=== PATIENT | male | born 1960 | race Caucasian/White ===

== ENCOUNTER 2017-05-04 03:57 | Inpatient (IN) | payer MEDICARE, MEDICAID ==
[2017-05-04] VITALS (16 sets, daily range): BP systolic 93–129; BP diastolic 5–80
[~2017-05-04] VITALS: Ht 152.4 cm; Wt 46.5 kg
[2017-05-04] MEDS ORDERED: NS IV 1000 ML 1,000 ML ONE (05:17)
[2017-05-04] MEDS ORDERED: NS IV 1000 ML 1,000 ML IV SCH ×2 (05:45)
[2017-05-04] MEDS ORDERED: DOPamine DRIP 250 ML IV SCH (05:45)
[2017-05-04 05:50] LABS: BILIRUBIN,URINE NEGATIVE (NEGATIVE); KETONES,URINE NEGATIVE (NEGATIVE); LEUKOCYTE ESTERASE ,URINE 3+ (NEGATIVE); NITRITE,URINE NEGATIVE (NEGATIVE); PH,URINE 8 (5-9); PROTEIN,URINE 3+ (NEGATIVE); UROBILINOGEN,URINE NORMAL (NORMAL)
[2017-05-04 05:59] LABS: TRIPLE PHOSPHATE CRYSTAL,UR FEW /LPF
[2017-05-04 06:09] LABS: BASOPHILS % (AUTO) 0 % (0-10); EOSINOPHILS # (AUTO) 0.1 10^3/uL (0.0-0.3); EOSINOPHILS % (AUTO) 0 % (0-10); LYMPHOCYTES # (AUTO) 0.5 X 10^3 (1.0-4.0); LYMPHOCYTES % (AUTO) 4 % (12-44); MEAN CORPUSCULAR HEMOGLOBIN 29 PG (25-34); MEAN CORPUSCULAR HGB CONC 33 G/DL (32-36); MEAN CORPUSCULAR VOLUME 89 FL (80-99); MONOCYTES # (AUTO) 0.9 X 10^3 (0.0-1.0); MONOCYTES % (AUTO) 7 % (0-12); NEUTROPHILS # (AUTO) 10.7 X 10^3 (1.8-7.8); NEUTROPHILS % (AUTO) 88 % (42-75); PLATELET COUNT 206 10^3/uL (130-400); RED BLOOD COUNT 3.87 10^6/uL (4.35-5.85); RED CELL DISTRIBUTION WIDTH 14.1 % (10.0-14.5); WHITE BLOOD COUNT 12.2 10^3/uL (4.3-11.0)
[2017-05-04 06:25] LABS: ANION GAP 8 MMOL/L (5-14); BLOOD UREA NITROGEN 39 MG/DL (7-18); BUN/CREATININE RATIO 39; CALCIUM 7.2 MG/DL (8.5-10.1); CARBON DIOXIDE 15 MMOL/L (21-32); CHLORIDE 119 MMOL/L (98-107); CREATININE SERUM 1.01 MG/DL (0.60-1.30); GFR ESTIMATED > 60; GLUCOSE 169 MG/DL (70-105); MAGNESIUM 1.6 MG/DL (1.8-2.4); PHOSPHORUS 2.3 MG/DL (2.3-4.7); POTASSIUM 3.8 MMOL/L (3.6-5.0); SODIUM 142 MMOL/L (135-145)
[2017-05-04 06:29] LABS: BAND NEUTROPHILS 4 %; BASOPHILS % (MANUAL) 0 %; EOSINOPHILS % (MANUAL) 0 %; LYMPHOCYTES % (MANUAL) 6 %; NEUTROPHILS % (MANUAL) 80 %
[2017-05-04 06:30] LABS: CRENATED RBC SLIGHT; POIKILOCYTOSIS MODERATE
[2017-05-04] MEDS ORDERED: NOREPINEPHRINE 4 MG/4 ML (LEVOPHED) AMP IV ONE (06:41)
[2017-05-04] MEDS ORDERED: LISI10TA2 PO (06:41)
[2017-05-04] MEDS ORDERED: AMLO5TAB2 PO (06:42)
[2017-05-04] MEDS ORDERED: D5W 250 ML (IVPB) 250 ML IV ONE (06:42)
[2017-05-04] MEDS ORDERED: SODIUM BICARB 8.4% 50 MEQ/50 ML (ABBOTT) SYR IV ONE (06:45)
[2017-05-04] MEDS ORDERED: LACTATED RINGERS 1,000 ML IV ONE (06:45)
[2017-05-04] MEDS ORDERED: PHARMACY TO DOSE IV SCH (06:45)
--- NOTE | 2017-05-04 06:54 | Pulmonary Consultation ---
History of Present Illness History of Present Illness Date of Consultation 05/04/17 06:49 Time Seen by Provider: 06:49 Date of Admission History of Present Illness 56yo with hx of spina bifida presented to [facility] secondary to MS change diarrhea and lethargy. [facility] dx him with sepsis and transferred him here. Pt has become hypotensive and he has already received 4 liters of NS. He is currently on Dopamine gtt however it is making him tachycardic with HR in 140's. SBP is around 90 via NIBP monitor. Pt has a chronic urostomy tube. I am consulted for ICU management. Family is at bedside. Allergies and Home Medications Allergies Coded Allergies: sulfamethoxazole (Verified Allergy, Mild, 05/04/17) trimethoprim (Verified Allergy, Mild, 05/04/17) Home Medications Amlodipine Besylate 5 Mg Tablet, 5 MG PO DAILY, (Reported) Lisinopril 10 Mg Tablet, 10 MG PO DAILY, (Reported) Past Gvctyuj-Rokonq-Xftqky Hx Patient Social History Alcohol Use: Denies Use Recreational Drug Use: No Smoking Status: Never a Smoker Recent Foreign Travel: No Contact w/Someone Who Travel: No Recent Infectious Disease Expo: No Physical Abuse Screen: No Sexual Abuse: No Immunizations Up To Date Date of Pneumonia Vaccine: Aug 04, 2016 Seasonal Allergies Seasonal Allergies: No Reproductive System Sexually Transmitted Disease: No HIV/AIDS: No Gastrointestinal Gastrointestinal Disorders: Hemorrhoids Blood Transfusions Adverse Reaction to a Blood Tr: No Review of Systems Time Seen by Provider: 07:00 Constitutional: Chills, Malaise, Weakness, No: Fever Eyes: No: Conjunctivae inflammation, Eyelid inflammation, Other, Pain, Redness , Vision change ENT: No: Ear discharge, Ear pain, Mouth pain, Mouth swelling, Nose congestion, Nose discharge, Nose pain, Other, Throat pain, Throat swelling Respiratory: No: Cough, Dry, Hemoptysis, Other, Pleuritic Pain, SOB with excertion, Shortness of breath, Sputum, Wheezing, Wheezing Cardiovascular: Palpitations, No: Chest Pain, Edema, Lt Headedness, Orthopnea, Other, Paroxysmal Noc. Dyspnea Gastrointestinal: Diarrhea, No: Abdominal Pain, Constipation, Hematochezia, Melena, Nausea, Other, Vomiting Genitourinary: No Dysuria, No Frequency, No Incontinence, No Hematuria, No Retention, No Other Musculoskeletal: No: arm pain, back pain, foot pain, hand pain, leg pain, neck pain, other, shoulder pain Exam Exam Vital Signs Date Time Temp Pulse Resp B/P (MAP) Pulse Ox O2 Delivery O2 Flow Rate FiO2 05/04/17 06:12 OxyMask 2.00 05/04/17 05:48 140 13 78/44 96 OxyMask 2.00 I & O 05/04/17 07:00 Intake Total 625 ml Output Total 100 ml Balance 525 ml General Appearance: Moderate Distress HEENT: PERRL/EOMI, Other (dry MM) Neck: No Carotid Bruit, No JVD, Other (short thick neck) Respiratory: No Accessory Muscle Use, No Respiratory Distress, No Accessory Muscle Use, Decreased Breath Sounds Cardiovascular: No JVD, Tachycardia, Other (decreased peripheral pulses ) Capillary Refill: Less Than 3 Seconds Peripheral Pulses: 1+ Radial Pulses (R), 1+ Radial Pulses (L) Gastrointestinal: non tender, soft, no organomegaly, No tenderness Extremity: Normal Capillary Refill, Normal Inspection Neurologic/Psychiatric: Alert, Oriented x3 Skin: Normal Color, Warm/Dry Lymphatic: No Adenopathy Results Lab Laboratory Tests 05/04/17 06:02 Assessment/Plan Assessment/Plan Severe Sepsis with septic shock probably secondary to UTI -Give another liter of LR -Change IVF to LR at 125 -Start Solu Cortef -change dopamine to Levophed -Will obtain Picc line and arterial line -Start Abx with vanco and zosyn -Obtain piper cultures Metabolic acidosis -give 2 amps of bicarb -Check ABG hypomagnesium -replace Spina Bifida hx 255 Clinical Quality Measures DVT/VTE Risk/Contraindication: Risk Factor Score Per Nursin RFS Level Per Nursing on Admit: 4+=Very High ARIEL HART DO May 04, 2017 06:54
[2017-05-04] MEDS ORDERED: PIPERACILLIN SODIUM/TAZOBACTAM 4.5 GM in NS (IVPB) 100 ML IV NR (07:00)
[2017-05-04] MEDS ORDERED: VANCOMYCIN 1 GM/NS 250 ML IVPB IV NR ×2 (07:00)
[2017-05-04] MEDS: LACTATED RINGERS 1,000 ML IV SCH ×3 (07:04→23:13)
[2017-05-04] MEDS: NOREPINEPHRINE 4 MG in D5W 250 ML (IVPB) 250 ML IV SCH ×2 (07:04→21:15)
[2017-05-04 07:11] LABS: ABG BASE EXCESS 1.1 MMOL/L (-2.5-2.5); ABG HCO3 25 MMOL/L (23-27); ABG OXYGEN SATURATION 95 % (94-100); ABG PCO2 44 MMHG (35-45); ABG PH 7.39 (7.37-7.43); ABG PO2 70 MMHG (79-93); ABG TCO2 26.7 MMOL/L (21.0-31.0)
[2017-05-04 07:12] LABS: ALLENS TEST POSITIVE; PATIENT TEMP 99.9
--- NOTE | 2017-05-04 07:35 | Diagnostic Imaging Report ---
EXAMINATION: Portable upright radiograph of the chest. INDICATION: Shortness of breath. No prior studies are available for comparison. FINDINGS: There are low lung volumes with bibasilar atelectasis. There is also upper and mid lung zone groundglass opacities in the left side. This could be atelectasis also or related to atypical infection. The heart size is at the upper limits of normal. No effusion or pneumothorax. There is fusion hardware from demonstrated in the lumbar spine and incompletely visualized courtney that overlies the lower thoracic spine and extends below the level of the image. IMPRESSION: Low lung volumes with left lung, and right basilar predominantly groundglass opacities may relate to atelectasis and possible superimposed atypical infection. Dictated by: Dictated on workstation # [id number]
[2017-05-04 07:44] LABS: INR 1.1 (0.8-1.4)
[2017-05-04] MEDS ORDERED: fentaNYL INJECTION 100 MCG/2 ML AMP ONE (08:11)
[2017-05-04] MEDS ORDERED: MIDAZOLAM 2 MG/2 ML (VERSED) VIAL ONE (08:12)
[2017-05-04] MEDS ORDERED: AMLO2.5T PO (08:35)
--- NOTE | 2017-05-04 09:22 | Diagnostic Imaging Report ---
EXAM: Postoperative radiograph of the chest. INDICATION: Central line placement. FINDINGS: There is a left internal jugular venous line placed. The tip of the catheter appears to project in the distal aspect of the left brachiocephalic vein. The lungs demonstrate low volumes with bibasilar atelectasis. The heart size appears enlarged, probably exaggerated by the low lung volumes and AP technique. No pneumothorax. No significant effusion. There is thoracolumbar scoliosis suggested with spine fusion hardware seen. IMPRESSION: 1. Left internal jugular venous line is inserted with the tip at the distal aspect of the left brachiocephalic vein. 2. Bibasilar atelectasis. Prominent cardiac size. Dictated by: Dictated on workstation # [id number]
[2017-05-04] MEDS: POTASSIUM CL 10MEQ/50ML IVPB 50 ML IV SCH ×2 (09:36→09:49)
[2017-05-04] MEDS: MAGNESIUM 1 GM/100 ML IVPB 100 ML IV SCH ×4 (09:36→10:46)
[2017-05-04] MEDS ORDERED: LOPE2TAB32 PO (09:56)
[2017-05-04] MEDS ORDERED: ASPI-983 PO (09:56)
--- NOTE | 2017-05-04 10:06 | History & Physical-Hospitalist ---
ANATOLY [employer]RE[employer]ER MEDICAL STUDENT 05/04/17 1006: HPI History of Present Illness: HPI/Chief Complaint CC: Diarrhea and Aphasia HPI: Patient is a 56 yo M with a history of spina bifida that was admitted to the [facility] with complaints of diarrhea and difficulty speaking. Patient was diagnosed with sepsis and transferred to [facility]. Symptoms started around 8:00pm last night and progressively worsened. Patient claimed to understand what everyone was telling him, but could not form the words he wanted to. Patient denied syncope episodes. Patient tried to take medication to stop diarrhea, but didn't help. Parents called 911 at 11:00pm. Patient claimed to have mild stomach pain at around 9:00pm that resolved this morning. Patient has no pain currently. ROS- Head- Denies headaches, nausea, dizziness and light headedness Eyes- Denies blurry or spotty vision Lungs- Denies shortness of breath, difficulty breathing and cough Heart- Denies chest pain and palpitations GI- Claims to still have diarrhea, ate this morning with no issues - Claims to have urostomy tube Extremities- Denies pain and swelling Source: patient Exam Limitations: no limitations Date Seen 05/04/17 Time Seen by Provider: 09:30 Attending Physician Jody Broussard DO PCP Stephen Zamora MD Referring Physician Date of Admission May 04, 2017 at 05:22 Home Medications & Allergies Home Medications Reviewed patient Home Medication Reconciliation Form Allergies Allergies Coded Allergies sulfamethoxazole (Verified Allergy, Mild, 05/04/17) trimethoprim (Verified Allergy, Mild, 05/04/17) Past Ewadwpb-Nywczr-Sgcseo Hx Patient Social History Alcohol Use: Denies Use Recreational Drug Use: No Smoking Status: Never a Smoker Physical Abuse Screen: No Sexual Abuse: No Recent Foreign Travel: No Contact w/other who traveled: No Recent Infectious Disease Expo: No Immunizations Up To Date Date of Pneumonia Vaccine: Aug 04, 2016 Seasonal Allergies Seasonal Allergies: No Reproductive System Sexually Transmitted Disease: No HIV/AIDS: No Gastrointestinal Gastrointestinal Disorders: Hemorrhoids Blood Transfusions Adverse Reaction to a Blood Tr: No Physical Exam Physical Exam Vital Signs Vital Sign - Last 12Hours 05/04/17 05/04/17 05:48 07:45 Temp 101.5 Pulse 140 Resp 13 B/P (MAP) 78/44 Pulse Ox 96 O2 Delivery OxyMask O2 Flow Rate 2.00 Capillary Refill : Less Than 3 Seconds Results Results/Procedures Lab Laboratory Tests 05/04/17 06:02 Assessment/Plan Admission Diagnosis Sepsis Assessment and Plan Sepsis with hypotension IV replacement Fluids Blood culture Broad spectrum antibiotics UTI Urine culture Diarrhea Loperamide Clinical Quality Measures DVT/VTE Risk/Contraindication: Risk Factor Score Per Nursin RFS Level Per Nursing on Admit: 4+=Very High PAULETTE LEUNG DO 05/04/17 1117: HPI History of Present Illness: HPI/Chief Complaint Patient was accepted as a direct admission to the ICU for septic shock and hypovolemic shock from [facility] after given 3 L of fluid in the ER and was placed on dopamine pressor during transport due to SBP of 70 and he was changed to Levophed placed on empiric abx with aggressive IV fluid resuscitation and Dr. Crowe was consulted. Updated the family on the plan all in agreement and will monitor closely in the ICU and consult Dr. Fuentes for bloody diarrhea placed back on Imodium home medication since that would not be harmful and can delay transit time to improve loose stools. Source: patient Exam Limitations: no limitations Time Seen by Provider: 10:00 Home Medications & Allergies Allergies Allergies Coded Allergies sulfamethoxazole (Verified Allergy, Mild, 05/04/17) trimethoprim (Verified Allergy, Mild, 05/04/17) Past Rosrbsq-Qyejae-Qzkuyp Hx Patient Social History Marrital Status: single Employed/Student: unemployed Alcohol Use: Denies Use Smoking Status: Never a Smoker Surgeries HX Surgeries: Yes Surgeries: Bowel Surgery, Orthopedic Respiratory Hx Respiratory Disorders: No Cardiovascular Hx Cardiovascular Disorders: Yes Cardiac Disorders: Hypertension Neurological Hx Neurological Disorders: Yes Neurological Disorders: Developmental Disorder, Paralysis Genitourinary Hx Genitourinary Disorders: Yes Genitourinary Disorders: Bladder Infection, UTI-Chronic Gastrointestinal Hx Gastrointestinal Disorders: Yes Gastrointestinal Disorders: Chronic Constipation Musculoskeletal Hx Musculoskeletal Disorders: Yes Musculoskeletal Disorders: Arthritis Endocrine Hx Endocrine Disorders: No HEENT HX ENT Disorders: No Cancer Hx Cancer: No Psychosocial Hx Psychiatric Problems: No Integumentary HX Skin/Integumentary Disorder: No Review of Systems Constitutional: no symptoms reported, chills, dizziness, fever, weakness EENTM: no symptoms reported Respiratory: no symptoms reported Cardiovascular: no symptoms reported Gastrointestinal: loss of appetite, melena Genitourinary: no symptoms reported Musculoskeletal: back pain Skin: other Psychiatric/Neurological: No Symptoms Reported All Other Systems Reviewed Negative Unless Noted: Yes Physical Exam Physical Exam Vital Signs Vital Sign - Last 12Hours 05/04/17 05/04/17 05:48 07:45 Temp 101.5 Pulse 140 Resp 13 B/P (MAP) 78/44 Pulse Ox 96 O2 Delivery OxyMask O2 Flow Rate 2.00 General Appearance: No Apparent Distress, WD/WN, Chronically ill Eyes: Bilateral Eye Normal Inspection, Bilateral Eye PERRL HEENT: PERRL/EOMI, Normal ENT Inspection, Pharynx Normal Neck: Full Range of Motion, Normal Inspection, Non Tender, Supple, Carotid Bruit Respiratory: Chest Non Tender, Lungs Clear, Normal Breath Sounds, No Accessory Muscle Use, No Respiratory Distress Cardiovascular: Regular Rate, Rhythm, No Edema, No Gallop, No JVD, No Murmur, Normal Peripheral Pulses Gastrointestinal: Normal Bowel Sounds, No Organomegaly, No Pulsatile Mass, Non Tender, Soft Back: Normal Inspection, No CVA Tenderness, No Vertebral Tenderness Extremity: Normal Capillary Refill, Normal Inspection, Normal Range of Motion ( amputated leg and pelvis), Non Tender, No Calf Tenderness, No Pedal Edema Neurologic/Psychiatric: Alert, Oriented x3, No Motor/Sensory Deficits, Normal Mood/Affect Skin: Normal Color, Warm/Dry Lymphatic: No Adenopathy Results Results/Procedures Lab Laboratory Tests 05/04/17 06:02 Assessment/Plan Admission Diagnosis Septic with hypovolumic shock Spina bifida with profound disability Chronic skin breakdown propensity for pressure ulcers HTN as outpatient Bloody diarrhea Assessment and Plan Hold BP ANATOLY Mahmood MEDICAL STUDENT May 04, 2017 10:06 PAULETTE LEUNG DO May 04, 2017 11:17
--- NOTE | 2017-05-04 11:13 | Physician Query Clarification ---
PQ-Link Infection to Dev/Proc Admission/Discharge Admission Date: May 04, 2017 at 05:22 Discharge Date: The medical record reflects the following clinical scenario: History/Risk Factors: Spina Bifida Urostomy Clinical Findings: Documented Severe sepsis Documented UTI with Urine Specific [place] 1.010, Urine Protein 3+, Urine Leukocyte Esterase 3+, Urine RBC(auto) 3+, Urine WBC 5-10, Urine Bacteria-Large Treatment: IV Vancomycin HCI, IV Piperacillin Sod/Tazobactam Sod/Sodium Chloride Question: Can you specify if the SEVERE SEPSIS/UTI is due to/associated with UROSTOMY? Please document a response below. PHYSICIAN RESPONSE Specify if infection: Other, explanation/clinical finding Explanation of clincal finding This is not my patient but I was unable to recheck this In responding to this query, please exercise your independent professional judgment. The purpose of this communication is to more accurately reflect the complexity of your patients condition. The fact that a question is asked does not imply that any particular answer is desired or expected. Thank you for your timely response to this clarification. Requestors name: Rosita Haque [facility] Phone # ext [phone] or [phone] THIS PHYSICIAN QUERY FORM IS A PERMANENT PART OF THE MEDICAL RECORD ROSITA HAQUE May 04, 2017 11:13 KLARISSA GUPTA DO May 04, 2017 14:36
[2017-05-04] MEDS ORDERED: LOPERAMIDE 2 MG (IMODIUM) CAP PO PRN (11:30)
[2017-05-04] MEDS: PIPERACILLIN SODIUM/TAZOBACTAM 4.5 GM in NS (IVPB) 100 ML IV SCH ×2 (14:27→22:15)
[2017-05-04] MEDS: HYDROCORTISONE 100 MG/2 ML (Solu-CORTEF) VIAL IV SCH ×2 (14:28→22:13)
--- NOTE | 2017-05-04 15:52 | Consultation ---
History of Present Illness History of Present Illness Patient Consulted On(alphonso/time) 05/04/17 15:47 Date Seen by Provider: May 04, 2017 Time Seen by Provider: 11:30 History of Present Illness consult requested by Dr. Jacinto for bloody diarrhea 56 year old male transferred for sepsis from [facility]. Patient yesterday evening had mental status change having large amounts of diarrhea. No blood in the stools at that time. Patient has continued to have loose stools now with some blood. Cdiff at [facility] negative. Patient with no pain able to be felt below nipple line he states. Patient with urostomy which is functioning. He has been hypotensive requiring pressors. Patient with family at bedside. Allergies and Home Medications Allergies Coded Allergies: sulfamethoxazole (Verified Allergy, Mild, 05/04/17) trimethoprim (Verified Allergy, Mild, 05/04/17) Home Medications Amlodipine Besylate 2.5 Mg Tablet, 2.5 MG PO BID, (Reported) Aspirin 81 Mg Tablet.dr, 81 MG PO Q48H, (Reported) Lisinopril 10 Mg Tablet, 10 MG PO DAILY, (Reported) Loperamide HCl 2 Mg Tablet, 2-4 MG PO DAILY PRN for DIARRHEA, (Reported) TAKES 1-2 OF A (2 MG) TABLET Past Fwkegaw-Feqikw-Vmaufe Hx Patient Social History Alcohol Use: Denies Use Recreational Drug Use: No Smoking Status: Never a Smoker Recent Foreign Travel: No Contact w/Someone Who Travel: No Recent Infectious Disease Expo: No Physical Abuse Screen: No Sexual Abuse: No Immunizations Up To Date Date of Pneumonia Vaccine: Aug 04, 2016 Seasonal Allergies Seasonal Allergies: No Surgeries HX Surgeries: Yes Surgeries: Bowel Surgery, Orthopedic Respiratory Hx Respiratory Disorders: No Cardiovascular Hx Cardiac Disorders: Yes Cardiac Disorders: Hypertension Neurological Hx Neurological Disorders: Yes Neurological Disorders: Developmental Disorder, Paralysis Reproductive System Sexually Transmitted Disease: No HIV/AIDS: No Genitourinary Hx Genitourinary Disorders: Yes Genitourinary Disorders: Bladder Infection, UTI-Chronic Gastrointestinal Hx Gastrointestinal Disorders: Yes Gastrointestinal Disorders: Chronic Constipation Musculoskeletal Hx Musculoskeletal Disorders: Yes Musculoskeletal Disorders: Arthritis Endocrine Hx Endocrine Disorders: No HEENT HX ENT Disorders: No Cancer Hx Cancer: No Psychosocial Hx Psychiatric Problems: No Integumentary HX Skin/Integumentary Disorder: No Blood Transfusions Adverse Reaction to a Blood Tr: No Family Medical History Significant Family History: No Pertinent Family Hx Review of Systems-General Constitutional: see HPI EENTM: no symptoms reported Respiratory: no symptoms reported Cardiovascular: no symptoms reported Gastrointestinal: diarrhea Genitourinary: see HPI Musculoskeletal: no symptoms reported Skin: no symptoms reported Psychiatric/Neurological: No Symptoms Reported Physical Exam-General Problems Physical Exam Vital Signs Vital Sign - Last 12Hours 05/04/17 05/04/17 05:48 07:45 Temp 101.5 Pulse 140 Resp 13 B/P (MAP) 78/44 Pulse Ox 96 O2 Delivery OxyMask O2 Flow Rate 2.00 Capillary Refill : Less Than 3 SecondsLess Than 3 Seconds General Appearance: no apparent distress HEENT: PERRL/EOMI Neck: supple Respiratory: no respiratory distress, no accessory muscle use Cardiovascular: tachycardia Gastrointestinal: soft (urostomy present), No distended Rectal: other (no palpable mass, hemorrhoid left lateral inflammed, some gross blood present) Extremities: other (left lower ext absent, right no edema) Neurologic/Psychiatric: alert, normal mood/affect Skin: warm/dry Data Review Labs Laboratory Tests 05/04/17 05:30: Urine Color YELLOW, Urine Clarity VERY CLOUDYH, Urine pH 8, Urine Specific [place] 1.010L, Urine Protein 3+H, Urine Glucose (UA) NEGATIVE, Urine Ketones NEGATIVE, Urine Nitrite NEGATIVE, Urine Bilirubin NEGATIVE, Urine Urobilinogen NORMAL, Urine Leukocyte Esterase 3+H, Urine RBC (Auto) 3+H, Urine RBC RARE, Urine WBC 5-10H, Urine Squamous Epithelial Cells NONE, Urine Crystals PRESENTH, Urine Triple Phosphate Crystals FEWH, Urine Bacteria LARGEH, Urine Casts NONE, Urine Mucus NEGATIVE, Urine Culture Indicated YES 05/04/17 06:02: White Blood Count 12.2H, Red Blood Count 3.87L, Hemoglobin 11.3L, Hematocrit 34L , Mean Corpuscular Volume 89, Mean Corpuscular Hemoglobin 29, Mean Corpuscular Hemoglobin Concent 33, Red Cell Distribution Width 14.1, Platelet Count 206, Mean Platelet Volume 9.0, Neutrophils (%) (Auto) 88H, Lymphocytes (%) (Auto) 4L , Monocytes (%) (Auto) 7, Eosinophils (%) (Auto) 0, Basophils (%) (Auto) 0, Neutrophils # (Auto) 10.7H, Lymphocytes # (Auto) 0.5L, Monocytes # (Auto) 0.9, Eosinophils # (Auto) 0.1, Basophils # (Auto) 0.0, Neutrophils % (Manual) 80, Lymphocytes % (Manual) 6, Monocytes % (Manual) 10, Eosinophils % (Manual) 0, Basophils % (Manual) 0, Band Neutrophils 4, Poikilocytosis MODERATE, Crenated Cell SLIGHT, Elliptocytes SLIGHT, Sodium Level 142, Potassium Level 3.8, Chloride Level 119H, Carbon Dioxide Level 15L, Anion Gap 8, Blood Urea Nitrogen 39H, Creatinine 1.01, Estimat Glomerular Filtration Rate > 60, BUN/Creatinine Ratio 39, Glucose Level 169H, Lactic Acid Level 1.03, Calcium Level 7.2L, Phosphorus Level 2.3, Magnesium Level 1.6L 05/04/17 07:02: Blood Gas Puncture Site RIGHT RADIAL, Blood Gas Patient Temperature 99.9, Arterial Blood pH 7.39, Arterial Blood Partial Pressure CO2 44, Arterial Blood Partial Pressure O2 70L, Arterial Blood HCO3 25, Arterial Blood Total CO2 26.7, Arterial Blood Oxygen Saturation 95, Arterial Blood Base Excess 1.1, Jayden Test POSITIVE, Blood Gas Ventilator Setting NO, Blood Gas Inspired Oxygen N/A 05/04/17 07:24: Lactic Acid Level 1.85, Prothrombin Time 14.0, INR Comment 1.1, Activated Partial Thromboplast Time 25 05/04/17 12:05: Lactic Acid Level 2.03*H 05/04/17 12:08: Glucometer 175H Assessment/Plan Assessment/Plan Assessment/Plan severe sepsis likely secondary to UTI Bloody diarrhea. C diff from [facility] reported negative Hemorrhoid inflamed could be source of blood On abx, iv hydration lactic acid repeat elevated getting bolus follow hgb no surgical intervention at this time, may need colonoscopy for further evaluation, if not in patient would recommend outpatient will follow Clinical Quality Measures DVT/VTE Risk/Contraindication: Risk Factor Score Per Nursin RFS Level Per Nursing on Admit: 4+=Very High MANUEL MARIO DO May 04, 2017 15:52
[2017-05-04] MEDS ORDERED: NS IV 1000 ML 1,000 ML IV ONE (16:00)
[2017-05-04] MEDS ORDERED: ACETAMINOPHEN 325 MG TABLET/CAPLET (TYLENOL) PO PRN (17:00)
[2017-05-04] MEDS: VANCOMYCIN 750 MG/NS 250 ML IVPB IV SCH ×2 (18:50)
[2017-05-05] VITALS (22 sets, daily range): BP systolic 78–144; BP diastolic 47–95
[2017-05-05 04:10] LABS: BASOPHILS % (AUTO) 0 % (0-10); EOSINOPHILS % (AUTO) 0 % (0-10); LYMPHOCYTES # (AUTO) 0.6 X 10^3 (1.0-4.0); LYMPHOCYTES % (AUTO) 5 % (12-44); MEAN CORPUSCULAR HEMOGLOBIN 28 PG (25-34); MEAN CORPUSCULAR HGB CONC 31 G/DL (32-36); MEAN CORPUSCULAR VOLUME 89 FL (80-99); MEAN PLATELET VOLUME 9.2 FL (7.4-10.4); MONOCYTES # (AUTO) 0.5 X 10^3 (0.0-1.0); MONOCYTES % (AUTO) 4 % (0-12); NEUTROPHILS % (AUTO) 91 % (42-75); PLATELET COUNT 198 10^3/uL (130-400); RED BLOOD COUNT 3.65 10^6/uL (4.35-5.85); RED CELL DISTRIBUTION WIDTH 14.8 % (10.0-14.5); WHITE BLOOD COUNT 12.1 10^3/uL (4.3-11.0)
[2017-05-05] MEDS: LACTATED RINGERS 1,000 ML IV SCH ×2 (04:21→12:21)
[2017-05-05 04:40] LABS: ANION GAP 10 MMOL/L (5-14); BLOOD UREA NITROGEN 19 MG/DL (7-18); BUN/CREATININE RATIO 27; CALCIUM 7.3 MG/DL (8.5-10.1); CARBON DIOXIDE 18 MMOL/L (21-32); CHLORIDE 120 MMOL/L (98-107); CREATININE SERUM 0.71 MG/DL (0.60-1.30); GFR ESTIMATED > 60; GLUCOSE 128 MG/DL (70-105); MAGNESIUM 2.7 MG/DL (1.8-2.4); PHOSPHORUS 2.6 MG/DL (2.3-4.7); POTASSIUM 3.6 MMOL/L (3.6-5.0); SODIUM 148 MMOL/L (135-145)
[2017-05-05 05:09] LABS: INR 1.3 (0.8-1.4); PROTHROMBIN TIME PATIENT 15.9 SEC (12.2-14.7)
[2017-05-05] MEDS: POTASSIUM CL 10MEQ/50ML IVPB 50 ML IV SCH ×3 (05:09→05:29)
[2017-05-05] MEDS: MAGNESIUM 1 GM/100 ML IVPB 100 ML IV SCH (05:09)
[2017-05-05] MEDS: HYDROCORTISONE 100 MG/2 ML (Solu-CORTEF) VIAL IV SCH ×3 (05:27→21:33)
[2017-05-05] MEDS: KCL 20 MEQ TAB (K-DUR) PO SCH (05:27)
[2017-05-05] MEDS: NOREPINEPHRINE 4 MG in D5W 250 ML (IVPB) 250 ML IV SCH (05:27)
[2017-05-05] MEDS: PIPERACILLIN SODIUM/TAZOBACTAM 4.5 GM in NS (IVPB) 100 ML IV SCH ×3 (05:46→21:33)
[2017-05-05] MEDS ORDERED: TROUGH ORDER-PHARMACY XX NR (06:00)
[2017-05-05 06:27] LABS: ALANINE AMINOTRANSFERASE 31 U/L (0-55); ALBUMIN 2.9 GM/DL (3.2-4.5); ANION GAP 11 MMOL/L (5-14); ASPARTATE AMINO TRANSFERASE 30 U/L (5-34); BILIRUBIN,TOTAL 0.3 MG/DL (0.1-1.0); BLOOD UREA NITROGEN 18 MG/DL (7-18); BUN/CREATININE RATIO 26; CALCIUM 7.9 MG/DL (8.5-10.1); CARBON DIOXIDE 18 MMOL/L (21-32); CHLORIDE 120 MMOL/L (98-107); GFR ESTIMATED > 60; GLUCOSE 123 MG/DL (70-105); POTASSIUM 3.6 MMOL/L (3.6-5.0); SODIUM 149 MMOL/L (135-145); TOTAL PROTEIN 4.8 GM/DL (6.4-8.2)
--- NOTE | 2017-05-05 06:30 | Progress Note ---
Subjective Date Seen by Provider: May 05, 2017 Time Seen by Provider: 06:25 Subjective/Events-last exam Remains on pressors. Small more formed stools, no blood. Tmax 101.5 in last 24 hours. Feeling better than yesterday. No new complaints. Denies n/v sweats chills shortness of breath or chest pain. Hgb 10.2 Objective Exam Vital Signs Date Time Temp Pulse Resp B/P (MAP) Pulse Ox O2 Delivery O2 Flow Rate FiO2 05/05/17 06:00 62 17 113/53 96 Nasal Cannula 2.00 05/05/17 05:00 63 21 126/61 97 Nasal Cannula 2.00 05/05/17 04:22 98.5 Nasal Cannula 2.00 05/05/17 04:00 67 17 78/57 97 Nasal Cannula 2.00 05/05/17 04:00 Nasal Cannula 2.00 05/05/17 03:00 71 17 108/49 97 Nasal Cannula 2.00 05/05/17 02:00 99 20 106/47 96 Nasal Cannula 2.00 05/05/17 01:00 74 05/05/17 01:00 74 18 120/53 99 Nasal Cannula 2.00 05/05/17 00:00 110 20 103/69 96 Room Air 05/05/17 00:00 Nasal Cannula 2.00 05/04/17 23:57 100.5 Nasal Cannula 2.00 05/04/17 23:00 101 18 95/63 98 Room Air 05/04/17 22:30 Nasal Cannula 2.00 05/04/17 22:00 82 17 93/62 92 Room Air 05/04/17 21:00 87 16 124/67 92 Room Air 05/04/17 20:00 Room Air 05/04/17 20:00 85 17 118/76 93 Room Air 05/04/17 19:30 100.6 Room Air 05/04/17 19:00 93 13 122/77 91 Room Air 05/04/17 19:00 104 05/04/17 18:00 90 17 110/61 92 Room Air 05/04/17 17:00 92 18 118/75 94 Room Air 05/04/17 16:00 100.1 99 16 112/71 94 Room Air 05/04/17 15:30 Room Air 05/04/17 15:00 103 18 113/69 95 Room Air 05/04/17 14:00 106 17 111/68 95 Room Air 05/04/17 13:00 108 05/04/17 13:00 109 127/80 95 Room Air 05/04/17 12:00 99.9 104 14 120/5 95 Room Air 05/04/17 11:52 Room Air 05/04/17 11:00 126 23 111/63 96 Room Air 05/04/17 10:00 126 19 112/71 94 Room Air 05/04/17 08:00 Room Air 05/04/17 08:00 126 129/64 95 Room Air 05/04/17 07:45 101.5 117 14 112/62 96 Room Air 05/04/17 07:36 Nasal Cannula 2.00 05/04/17 07:00 121 I & O 05/05/17 07:00 Intake Total 7340 ml Output Total 2900 ml Balance 4440 ml Capillary Refill : Less Than 3 SecondsLess Than 3 Seconds General Appearance: No Apparent Distress, WD/WN, Chronically ill HEENT: Normal ENT Inspection Neck: Normal Inspection, Non Tender, Supple Respiratory: No Accessory Muscle Use, No Respiratory Distress Cardiovascular: Regular Rate, Rhythm Peripheral Pulses: 1+ Radial Pulses (R), 1+ Radial Pulses (L) Gastrointestinal: soft (urostomy), No distended Extremity: Normal Capillary Refill, Normal Inspection, Normal Range of Motion ( amputated leg and pelvis left), Non Tender, No Pedal Edema Neurologic/Psychiatric: Alert, Oriented x3, Normal Mood/Affect, Other ( sensation change approximately nipple line down.) Skin: Normal Color, Warm/Dry Lymphatic: No Adenopathy Results Lab Laboratory Tests 05/04/17 07:02: Blood Gas Puncture Site RIGHT RADIAL, Blood Gas Patient Temperature 99.9, Arterial Blood pH 7.39, Arterial Blood Partial Pressure CO2 44, Arterial Blood Partial Pressure O2 70L, Arterial Blood HCO3 25, Arterial Blood Total CO2 26.7, Arterial Blood Oxygen Saturation 95, Arterial Blood Base Excess 1.1, Jayden Test POSITIVE, Blood Gas Ventilator Setting NO, Blood Gas Inspired Oxygen N/A 05/04/17 07:24: Prothrombin Time 14.0, INR Comment 1.1, Activated Partial Thromboplast Time 25, Lactic Acid Level 1.85 05/04/17 12:05: Lactic Acid Level 2.03*H 05/04/17 12:08: Glucometer 175H 05/04/17 16:10: Lactic Acid Level 2.00 05/04/17 17:26: Glucometer 168H 05/04/17 20:00: Lactic Acid Level 0.86 05/05/17 00:20: Lactic Acid Level 0.70 05/05/17 03:55: White Blood Count 12.1H, Red Blood Count 3.65L, Hemoglobin 10.2L, Hematocrit 33L , Mean Corpuscular Volume 89, Mean Corpuscular Hemoglobin 28, Mean Corpuscular Hemoglobin Concent 31L, Red Cell Distribution Width 14.8H, Platelet Count 198, Mean Platelet Volume 9.2, Neutrophils (%) (Auto) 91H, Lymphocytes (%) (Auto) 5L , Monocytes (%) (Auto) 4, Eosinophils (%) (Auto) 0, Basophils (%) (Auto) 0, Neutrophils # (Auto) 11.0H, Lymphocytes # (Auto) 0.6L, Monocytes # (Auto) 0.5, Eosinophils # (Auto) 0.0, Basophils # (Auto) 0.0, Prothrombin Time 15.9H, INR Comment 1.3, Activated Partial Thromboplast Time 38H, Sodium Level 148H, Potassium Level 3.6, Chloride Level 120H, Carbon Dioxide Level 18L, Anion Gap 10 , Blood Urea Nitrogen 19H, Creatinine 0.71, Estimat Glomerular Filtration Rate > 60, BUN/Creatinine Ratio 27, Glucose Level 128H, Lactic Acid Level 0.64, Calcium Level 7.3L, Phosphorus Level 2.6, Magnesium Level 2.7H 05/05/17 05:45: Assessment/Plan Assessment/Plan Assessment/Plan severe sepsis likely secondary to UTI Bloody diarrhea. C diff from [facility] reported negative having more formed stool without blood overnight Hemorrhoid inflamed could be source of blood On abx, iv hydration Lactic acid normal range follow hgb no surgical intervention at this time, colonoscopy outpatient for further evaluation if not inpatient will follow. Clinical Quality Measures DVT/VTE Risk/Contraindication: Risk Factor Score Per Nursin RFS Level Per Nursing on Admit: 4+=Very High MANUEL MARIO DO May 05, 2017 06:30
[2017-05-05] MEDS ORDERED: VANCOMYCIN 750 MG/NS 250 ML IVPB IV SCH ×2 (07:00)
[2017-05-05] MEDS: VANCOMYCIN 750 MG/NS 250 ML IVPB IV SCH ×4 (08:02→20:03)
[2017-05-05] MEDS: FAMOTIDINE 20 MG (PEPCID) TABLET PO SCH (08:02)
--- NOTE | 2017-05-05 11:25 | Progress Note-Hospitalist ---
Progress Note HPI/CC on Admission Patient was accepted as a direct admission to the ICU for septic shock and hypovolemic shock from [facility] after given 3 L of fluid in the ER and was placed on dopamine pressor during transport due to SBP of 70 and he was changed to Levophed placed on empiric abx with aggressive IV fluid resuscitation and Dr. Crowe was consulted. Updated the family on the plan all in agreement and will monitor closely in the ICU and consult Dr. Fuentes for bloody diarrhea placed back on Imodium home medication since that would not be harmful and can delay transit time to improve loose stools. Progress Notes/Assess & Plan Date Seen 05/05/17 Time Seen by Provider: 10:00 Admission Dx/Process Septic with hypovolumic shock Spina bifida with profound disability Chronic skin breakdown propensity for pressure ulcers HTN as outpatient Bloody diarrhea Diagonsis/Assessment & Plan Patient doing much better and levophed is almost titrated down and off Updated mother on status Preliminary urine culture coming back Zosyn and Vanc still on board Patient doing much better and less bloody stool Appreciate Dr. Fuentes consultation No fever, vital signs stable, pleasant, improved Family at bedside Regular rate and rhythm, clear to auscultation bilaterally No edema of remaining right leg Laboratory Tests 05/05/17 03:55 05/05/17 05:45 Assessment: Septic and hypovolemic shock due to UTI Bloody diarrhea C. difficile negative consulted general surgery Spina bifida with major orthopedic deformities and major disability Leukocytosis Urostomy Plan: Maintain empiric antibiotics until final culture Continue IV fluids Wean off pressors therapy Monitor closely PAULETTE LEUNG DO May 05, 2017 11:25
--- NOTE | 2017-05-05 14:18 | Pulmonary Progress Note ---
Subjective Time Seen by Provider: 10:39 Subjective/Events-last exam PT feels improved. No complications noted. Exam Exam Vital Signs Date Time Temp Pulse Resp B/P (MAP) Pulse Ox O2 Delivery O2 Flow Rate FiO2 05/05/17 12:00 99.0 Room Air 05/05/17 08:30 Room Air 05/05/17 08:00 99.3 60 20 136/50 93 Nasal Cannula 2.00 05/05/17 07:00 58 05/05/17 06:00 62 17 113/53 96 Nasal Cannula 2.00 05/05/17 05:00 63 21 126/61 97 Nasal Cannula 2.00 05/05/17 04:22 98.5 Nasal Cannula 2.00 05/05/17 04:00 67 17 78/57 97 Nasal Cannula 2.00 05/05/17 04:00 Nasal Cannula 2.00 05/05/17 03:00 71 17 108/49 97 Nasal Cannula 2.00 05/05/17 02:00 99 20 106/47 96 Nasal Cannula 2.00 05/05/17 01:00 74 05/05/17 01:00 74 18 120/53 99 Nasal Cannula 2.00 05/05/17 00:00 110 20 103/69 96 Room Air 05/05/17 00:00 Nasal Cannula 2.00 05/04/17 23:57 100.5 Nasal Cannula 2.00 05/04/17 23:00 101 18 95/63 98 Room Air 05/04/17 22:30 Nasal Cannula 2.00 05/04/17 22:00 82 17 93/62 92 Room Air 05/04/17 21:00 87 16 124/67 92 Room Air 05/04/17 20:00 Room Air 05/04/17 20:00 85 17 118/76 93 Room Air 05/04/17 19:30 100.6 Room Air 05/04/17 19:00 93 13 122/77 91 Room Air 05/04/17 19:00 104 05/04/17 18:00 90 17 110/61 92 Room Air 05/04/17 17:00 92 18 118/75 94 Room Air 05/04/17 16:00 100.1 99 16 112/71 94 Room Air 05/04/17 15:30 Room Air 05/04/17 15:00 103 18 113/69 95 Room Air I & O 05/05/17 07:00 Intake Total 7490 ml Output Total 3550 ml Balance 3940 ml General Appearance: No Apparent Distress, WD/WN, Chronically ill HEENT: Normal ENT Inspection Neck: Normal Inspection, Non Tender, Supple Respiratory: No Accessory Muscle Use, No Respiratory Distress Cardiovascular: Regular Rate, Rhythm Capillary Refill: Less Than 3 Seconds Peripheral Pulses: 1+ Radial Pulses (R), 1+ Radial Pulses (L) Gastrointestinal: soft Extremity: Normal Capillary Refill, Normal Inspection, Normal Range of Motion, Non Tender, No Pedal Edema Neurologic/Psychiatric: Alert, Oriented x3, Normal Mood/Affect, Other Skin: Normal Color, Warm/Dry Lymphatic: No Adenopathy Results Lab Laboratory Tests 05/04/17 06:02 05/05/17 03:55 05/05/17 05:45 Assessment/Plan Assessment/Plan Severe Sepsis with septic shock probably secondary to UTI -Change IVF to LR at 125 -Start Solu Cortef -off Levophed - vanco and zosyn -Obtain piper cultures Metabolic acidosis -Check ABG hypomagnesium -replace Hypernatremia/hyperchloremia -change IVF to d5W Spina Bifida hx 233 Clinical Quality Measures DVT/VTE Risk/Contraindication: Risk Factor Score Per Nursin RFS Level Per Nursing on Admit: 4+=Very High ARIEL HART DO May 05, 2017 14:18
[2017-05-05] MEDS: D5W 1000 ML IV SOLUTION 1,000 ML IV SCH (16:23)
[2017-05-06] VITALS (25 sets, daily range): BP systolic 86–149; BP diastolic 34–106
[2017-05-06] MEDS: NOREPINEPHRINE 4 MG in D5W 250 ML (IVPB) 250 ML IV SCH ×2 (00:17→12:45)
[2017-05-06 04:46] LABS: BASOPHILS % (AUTO) 0 % (0-10); EOSINOPHILS % (AUTO) 0 % (0-10); LYMPHOCYTES # (AUTO) 0.9 X 10^3 (1.0-4.0); LYMPHOCYTES % (AUTO) 8 % (12-44); MEAN CORPUSCULAR HEMOGLOBIN 28 PG (25-34); MEAN CORPUSCULAR HGB CONC 31 G/DL (32-36); MEAN CORPUSCULAR VOLUME 90 FL (80-99); MEAN PLATELET VOLUME 9.6 FL (7.4-10.4); MONOCYTES # (AUTO) 0.5 X 10^3 (0.0-1.0); MONOCYTES % (AUTO) 5 % (0-12); NEUTROPHILS # (AUTO) 9.6 X 10^3 (1.8-7.8); NEUTROPHILS % (AUTO) 87 % (42-75); PLATELET COUNT 173 10^3/uL (130-400); RED BLOOD COUNT 3.24 10^6/uL (4.35-5.85); RED CELL DISTRIBUTION WIDTH 14.9 % (10.0-14.5)
[2017-05-06 05:06] LABS: INR 1.2 (0.8-1.4); PROTHROMBIN TIME PATIENT 15.2 SEC (12.2-14.7)
[2017-05-06 05:21] LABS: ANION GAP 6 MMOL/L (5-14); BLOOD UREA NITROGEN 17 MG/DL (7-18); BUN/CREATININE RATIO 24; CALCIUM 8.1 MG/DL (8.5-10.1); CARBON DIOXIDE 21 MMOL/L (21-32); CHLORIDE 115 MMOL/L (98-107); CREATININE SERUM 0.71 MG/DL (0.60-1.30); GFR ESTIMATED > 60; GLUCOSE 163 MG/DL (70-105); PHOSPHORUS 2.3 MG/DL (2.3-4.7); POTASSIUM 3.7 MMOL/L (3.6-5.0); SODIUM 142 MMOL/L (135-145)
[2017-05-06] MEDS: POTASSIUM CL 10MEQ/50ML IVPB 50 ML IV SCH ×5 (05:26→18:56)
[2017-05-06] MEDS: HYDROCORTISONE 100 MG/2 ML (Solu-CORTEF) VIAL IV SCH ×3 (05:27→21:51)
[2017-05-06] MEDS: MAGNESIUM 1 GM/100 ML IVPB 100 ML IV SCH (05:27)
[2017-05-06] MEDS: PIPERACILLIN SODIUM/TAZOBACTAM 4.5 GM in NS (IVPB) 100 ML IV SCH (05:29)
[2017-05-06] MEDS: KCL 20 MEQ TAB (K-DUR) PO SCH (05:29)
[2017-05-06] MEDS ORDERED: TROUGH ORDER-PHARMACY XX NR (06:00)
[2017-05-06 06:42] LABS: ALANINE AMINOTRANSFERASE 26 U/L (0-55); ALBUMIN 2.6 GM/DL (3.2-4.5); ANION GAP 6 MMOL/L (5-14); ASPARTATE AMINO TRANSFERASE 25 U/L (5-34); BILIRUBIN,TOTAL 0.4 MG/DL (0.1-1.0); BLOOD UREA NITROGEN 17 MG/DL (7-18); BUN/CREATININE RATIO 24; CARBON DIOXIDE 22 MMOL/L (21-32); CHLORIDE 114 MMOL/L (98-107); GFR ESTIMATED > 60; GLUCOSE 153 MG/DL (70-105); POTASSIUM 3.6 MMOL/L (3.6-5.0); SODIUM 142 MMOL/L (135-145); TOTAL PROTEIN 4.4 GM/DL (6.4-8.2)
[2017-05-06] MEDS ORDERED: VANCOMYCIN 500 MG/NS 100 ML IVPB IV SCH ×2 (08:00)
[2017-05-06] MEDS: FAMOTIDINE 20 MG (PEPCID) TABLET PO SCH (09:08)
[2017-05-06] MEDS: D5W 1000 ML IV SOLUTION 1,000 ML IV SCH (09:22)
--- NOTE | 2017-05-06 09:33 | Diagnostic Imaging Report ---
INDICATION: Dyspnea. Comparison made with prior examination from 05/04/17. FINDINGS: There is cardiomegaly. There is some venous congestion. There is some left basilar atelectasis and/or pneumonitis. There is a small left pleural effusion. There is no pneumothorax. IMPRESSION: Left basilar atelectasis and/or pneumonitis and small left pleural effusion. Cardiomegaly and mild central pulmonary venous congestion. Dictated by: Dictated on workstation # [id number]
--- NOTE | 2017-05-06 11:17 | Progress Note ---
Subjective Date Seen by Provider: May 06, 2017 Time Seen by Provider: 11:14 Subjective/Events-last exam Patient feeling better. No new complaints. Tolerating diet. Off pressors. Hgb 9.2. Not having any bloody bm at this time. Objective Exam Vital Signs Date Time Temp Pulse Resp B/P (MAP) Pulse Ox O2 Delivery O2 Flow Rate FiO2 05/06/17 09:00 68 18 115/54 95 Nasal Cannula 2.00 05/06/17 08:00 60 16 119/65 95 Nasal Cannula 2.00 05/06/17 07:00 55 15 117/56 98 Nasal Cannula 2.00 05/06/17 07:00 55 05/06/17 06:48 Nasal Cannula 2.00 05/06/17 06:00 52 14 101/57 96 05/06/17 05:00 72 17 117/55 98 05/06/17 04:03 99.2 05/06/17 04:00 Nasal Cannula 2.00 05/06/17 04:00 96 18 91/34 91 05/06/17 03:00 73 13 116/67 97 05/06/17 02:00 81 31 112/53 98 05/06/17 01:00 79 21 114/54 7 05/06/17 01:00 79 05/06/17 00:35 98.3 88 18 99/62 93 Nasal Cannula 2.00 05/06/17 00:00 75 33 116/62 97 05/06/17 00:00 Nasal Cannula 2.00 05/05/17 23:00 65 14 105/55 97 Nasal Cannula 2.00 05/05/17 22:00 76 13 107/62 92 Nasal Cannula 2.00 05/05/17 21:00 79 17 119/70 95 Nasal Cannula 2.00 05/05/17 20:25 Nasal Cannula 2.00 05/05/17 20:00 Nasal Cannula 2.00 05/05/17 20:00 99.0 78 18 108/95 94 Nasal Cannula 2.00 05/05/17 19:00 62 05/05/17 19:00 65 18 90 Room Air 05/05/17 18:00 64 14 121/81 88 Room Air 05/05/17 17:45 90 13 129/73 89 Room Air 05/05/17 16:45 80 16 132/84 89 Room Air 05/05/17 16:00 98.9 Room Air 05/05/17 16:00 79 20 92 Room Air 05/05/17 15:45 84 22 108/80 89 Room Air 05/05/17 14:45 85 118/61 90 Room Air 05/05/17 13:00 87 22 117/66 92 Room Air 05/05/17 13:00 85 05/05/17 12:00 99.0 Room Air I & O 05/06/17 07:00 Intake Total 2450 ml Output Total 1625 ml Balance 825 ml Capillary Refill : Less Than 3 SecondsLess Than 3 Seconds General Appearance: No Apparent Distress, WD/WN, Chronically ill HEENT: Normal ENT Inspection Neck: Normal Inspection, Non Tender, Supple Respiratory: No Accessory Muscle Use, No Respiratory Distress Cardiovascular: Regular Rate, Rhythm Peripheral Pulses: 1+ Radial Pulses (R), 1+ Radial Pulses (L) Gastrointestinal: soft Extremity: Normal Capillary Refill, Non Tender, No Pedal Edema, Other (left ext absent) Neurologic/Psychiatric: Alert, Oriented x3, Normal Mood/Affect, Other Skin: Normal Color, Warm/Dry Lymphatic: No Adenopathy Other comments hemorrhoid less inflamed Results Lab Laboratory Tests 05/05/17 13:59: Glucometer 83 05/05/17 19:13: Glucometer 123H 05/06/17 00:27: Glucometer 182H 05/06/17 04:00: White Blood Count 11.0, Red Blood Count 3.24L, Hemoglobin 9.2L, Hematocrit 29L, Mean Corpuscular Volume 90, Mean Corpuscular Hemoglobin 28, Mean Corpuscular Hemoglobin Concent 31L, Red Cell Distribution Width 14.9H, Platelet Count 173, Mean Platelet Volume 9.6, Neutrophils (%) (Auto) 87H, Lymphocytes (%) (Auto) 8L , Monocytes (%) (Auto) 5, Eosinophils (%) (Auto) 0, Basophils (%) (Auto) 0, Neutrophils # (Auto) 9.6H, Lymphocytes # (Auto) 0.9L, Monocytes # (Auto) 0.5, Eosinophils # (Auto) 0.0, Basophils # (Auto) 0.0, Prothrombin Time 15.2H, INR Comment 1.2, Activated Partial Thromboplast Time 48H, Sodium Level 142, Potassium Level 3.7, Chloride Level 115H, Carbon Dioxide Level 21, Anion Gap 6, Blood Urea Nitrogen 17, Creatinine 0.71, Estimat Glomerular Filtration Rate > 60 , BUN/Creatinine Ratio 24, Glucose Level 163H, Calcium Level 8.1L, Phosphorus Level 2.3, Magnesium Level 2.0 05/06/17 06:00: Sodium Level 142, Potassium Level 3.6, Chloride Level 114H, Carbon Dioxide Level 22, Anion Gap 6, Blood Urea Nitrogen 17, Creatinine 0.70, Estimat Glomerular Filtration Rate > 60, BUN/Creatinine Ratio 24, Glucose Level 153H, Calcium Level 8.0L, Total Bilirubin 0.4, Aspartate Amino Transf (AST/SGOT) 25, Alanine Aminotransferase (ALT/SGPT) 26, Alkaline Phosphatase 60, Total Protein 4.4L, Albumin 2.6L, Vancomycin Level Trough 20.8H Microbiology 05/04/17 Blood Culture - Preliminary, Resulted No growth 05/04/17 C. difficile GDH Antigen & Toxins - Final, Complete 05/04/17 MRSA Screen - Final, Complete MRSA not isolated 05/04/17 Urine Culture - Final, Complete Escherichia Coli Enterococcus Faecalis Assessment/Plan Assessment/Plan Assessment/Plan severe sepsis likely secondary to UTI Bloody diarrhea. C diff from [facility] reported negative, no more bloody diarrhea Hemorrhoid less inflamed On abx, iv hydration follow hgb no surgical intervention at this time, colonoscopy outpatient for further evaluation if not inpatient will follow, likely transfer to floor. Clinical Quality Measures DVT/VTE Risk/Contraindication: Risk Factor Score Per Nursin RFS Level Per Nursing on Admit: 4+=Very High MANUEL MARIO DO May 06, 2017 11:17 am
[2017-05-06] MEDS ORDERED: FUROSEMIDE 40 MG/4 ML INJ (LASIX) IVP NR ×2 (12:15→18:00)
--- NOTE | 2017-05-06 12:17 | Progress Note-Hospitalist ---
Progress Note HPI/CC on Admission Patient was accepted as a direct admission to the ICU for septic shock and hypovolemic shock from [facility] after given 3 L of fluid in the ER and was placed on dopamine pressor during transport due to SBP of 70 and he was changed to Levophed placed on empiric abx with aggressive IV fluid resuscitation and Dr. Crowe was consulted. Updated the family on the plan all in agreement and will monitor closely in the ICU and consult Dr. Fuentes for bloody diarrhea placed back on Imodium home medication since that would not be harmful and can delay transit time to improve loose stools. Progress Notes/Assess & Plan Date Seen 05/06/17 Time Seen by Provider: 10:30 Admission Dx/Process Septic with hypovolumic shock Spina bifida with profound disability Chronic skin breakdown propensity for pressure ulcers HTN as outpatient Bloody diarrhea Diagonsis/Assessment & Plan Patient doing much better and levophed is off Changed abx to Unasyn after Cx reviewed Edema noted after given several liters of fluid (8 liters at [facility]) after arrival for septic shock after 3 liters given at [facility] No bloody bowel movements noted No fever, vital signs stable, pleasant, improved Regular rate and rhythm, clear to auscultation bilaterally but diminished and slight wheeze is noted Noted edema of upper extremities and ring on left hand Laboratory Tests 05/06/17 04:00 05/06/17 06:00 Assessment: Septic and hypovolemic shock due to UTI now w/anasarca and mild pulmonary edema on CXR w/subtle pleural effusion w/hypoxia due to volume overload of 6 liters excess balance Bloody diarrhea C. difficile negative consulted general surgery but now resolved for now so will monitor only Spina bifida with major orthopedic deformities and major disability Leukocytosis resolved Urostomy Plan: Unasyn Decrease IVF Give one dose of Lasix 20mg now Monitor closely Keep in ICU until pulmonary edema improved remove PAULETTE Fisher DO May 06, 2017 12:17
[2017-05-06] MEDS: AMPICILLIN/SULBACTAM INJECTION 1.5 GM in NS (IVPB) 50 ML IV SCH ×2 (12:35→21:52)
[2017-05-06] MEDS ORDERED: MAGNESIUM 1 GM/100 ML IVPB 100 ML IV ONE (15:00)
--- NOTE | 2017-05-06 17:17 | Consultation-Cardiology ---
HPI-Cardiology Cardiology Consultation Date of Consultation 05/06/17 Date of Admission Time Seen by Provider: 17:11 HPI 56-year-old gentleman with history of spina bifida, admitted to ICU as a transfer from [facility] for hypovolemic shock and sepsis, receive aggressive amount of hydration, noted to have increasing fluid retention, he has been receiving antibiotic therapy. He was noted to have elevated BNP. Denied any previous cardiac history, denied any chest pain, admitting to have chronic shortness of breath, no fever or chills at this time. Patient was having bloody diarrhea Home Medications & Allergies Allergies: Coded Allergies: sulfamethoxazole (Verified Allergy, Mild, 05/04/17) trimethoprim (Verified Allergy, Mild, 05/04/17) Home Medication List Reviewed: Yes [id number] Hx Patient Social History Marital Status: single Employed/Student: unemployed Alcohol Use: Denies Use Recreational Drug Use: No Smoking Status: Never a Smoker Recent Foreign Travel: No Recent Infectious Disease Expo: No Physical Abuse Screen: No Sexual Abuse: No Immunizations Up To Date Date of Pneumonia Vaccine: Aug 04, 2016 Past Medical History past medical history as discussed below Family Medical History Significant Family History: No Pertinent Family Hx Family Medical Hx no known family history of premature coronary artery disease or congestive heart failure Constitutional: see HPI, malaise, weakness EENTM: no symptoms reported, see HPI Respiratory: see HPI, dyspnea on exertion, short of breath Cardiovascular: see HPI, No chest pain, edema, No Hx of Intervention, No palpitations, No syncope, No vascular heart diseas, No other Gastrointestinal: see HPI, diarrhea Genitourinary: see HPI, other (chronic catheter) Musculoskeletal: see HPI, back pain, muscle pain, muscle stiffness Skin: see HPI Psychiatric/Neurological: No Symptoms Reported, See HPI Reviewed Test Results Reviewed Test Results Lab Laboratory Tests Test 05/05/17 19:13 05/06/17 00:27 05/06/17 04:00 05/06/17 06:00 Range/Units Glucometer 123 H 182 H 70-110 MG/DL White Blood Count 11.0 4.3-11.0 10^3/uL Red Blood Count 3.24 L 4.35-5.85 10^6/uL Hemoglobin 9.2 L 13.3-17.7 G/DL Hematocrit 29 L 40-54 % Mean Corpuscular Volume 90 80-99 FL Mean Corpuscular Hemoglobin 28 25-34 PG Mean Corpuscular Hemoglobin Concent 31 L 32-36 G/DL Red Cell Distribution Width 14.9 H 10.0-14.5 % Platelet Count 173 130-400 10^3/uL Mean Platelet Volume 9.6 7.4-10.4 FL Neutrophils (%) (Auto) 87 H 42-75 % Lymphocytes (%) (Auto) 8 L 12-44 % Monocytes (%) (Auto) 5 0-12 % Eosinophils (%) (Auto) 0 0-10 % Basophils (%) (Auto) 0 0-10 % Neutrophils # (Auto) 9.6 H 1.8-7.8 X 10^3 Lymphocytes # (Auto) 0.9 L 1.0-4.0 X 10^3 Monocytes # (Auto) 0.5 0.0-1.0 X 10^3 Eosinophils # (Auto) 0.0 0.0-0.3 10^3/uL Basophils # (Auto) 0.0 0.0-0.1 10^3/uL Prothrombin Time 15.2 H 12.2-14.7 SEC INR Comment 1.2 0.8-1.4 Activated Partial Thromboplast Time 48 H 24-35 SEC Sodium Level 142 142 135-145 MMOL/L Potassium Level 3.7 3.6 3.6-5.0 MMOL/L Chloride Level 115 H 114 H 98-107 MMOL/L Carbon Dioxide Level 21 22 21-32 MMOL/L Anion Gap 6 6 5-14 MMOL/L Blood Urea Nitrogen 17 17 7-18 MG/DL Creatinine 0.71 0.70 0.60-1.30 MG/DL Estimat Glomerular Filtration Rate > 60 > 60 BUN/Creatinine Ratio 24 24 Glucose Level 163 H 153 H 70-105 MG/DL Calcium Level 8.1 L 8.0 L 8.5-10.1 MG/DL Phosphorus Level 2.3 2.3-4.7 MG/DL Magnesium Level 2.0 1.8-2.4 MG/DL Total Bilirubin 0.4 0.1-1.0 MG/DL Aspartate Amino Transf (AST/SGOT) 25 5-34 U/L Alanine Aminotransferase (ALT/SGPT) 26 0-55 U/L Alkaline Phosphatase 60 40-136 U/L Total Protein 4.4 L 6.4-8.2 GM/DL Albumin 2.6 L 3.2-4.5 GM/DL Vancomycin Level Trough 20.8 H 10.0-20.0 UG/ML Test 05/06/17 12:37 Range/Units B-Type Natriuretic Peptide 745.7 H <100.0 PG/ML Physical Exam Vital Signs Vital Sign - Last 12Hours 05/04/17 05/04/17 05:48 07:45 Temp 101.5 Pulse 140 Resp 13 B/P (MAP) 78/44 Pulse Ox 96 O2 Delivery OxyMask O2 Flow Rate 2.00 Capillary Refill : Less Than 3 SecondsLess Than 3 Seconds General Appearance: WD/WN, Mild Distress Eyes: Bilateral Eye EOMI, Bilateral Eye Normal Inspection, Bilateral Eye PERRL HEENT: PERRL/EOMI, TMs Normal, Normal ENT Inspection, Pharynx Normal Neck: Normal Inspection, Supple Respiratory: Chest Non Tender, No Accessory Muscle Use, No Respiratory Distress , Crackles, Decreased Breath Sounds Cardiovascular: Regular Rate, Rhythm, Normal Peripheral Pulses, Systolic Murmur , Gallop/S3 Gastrointestinal: No Organomegaly, Abnormal Bowel Sounds, Other (cars of previous surgery, urostomy) Back: Other (history of spina bifida) Extremity: Pedal Edema, Slow Capillary Refill Neurologic/Psychiatric: Alert, Oriented x3 Skin: Normal Color, Warm/Dry Lymphatic: No Adenopathy A/P-Cardiology Admission Diagnosis Anasarca Sepsis Urinary tract infection Spina bifida Assessment/Plan Fluid overload, elevated BNP level, received a dose of Lasix, I will evaluate 2- D echocardiogram. Sepsis and hypovolemic shock secondary to urinary tract infection, receiving antibiotics, improved at this time, continue to monitor blood pressure Bloody diarrhea, workup including C. difficile is negative, followed and managed by Dr. Fuentes Spina bifida with major orthopedic deformities and major disability History of urostomy Clinical Quality Measures DVT/VTE Risk/Contraindication: Risk Factor Score Per Nursin RFS Level Per Nursing on Admit: 4+=Very High MARCO MIR MD May 06, 2017 17:17
[2017-05-07] VITALS (16 sets, daily range): BP systolic 90–170; BP diastolic 52–104
[2017-05-07 04:59] LABS: BASOPHILS % (AUTO) 0 % (0-10); EOSINOPHILS % (AUTO) 0 % (0-10); LYMPHOCYTES # (AUTO) 0.9 X 10^3 (1.0-4.0); LYMPHOCYTES % (AUTO) 10 % (12-44); MEAN CORPUSCULAR HEMOGLOBIN 28 PG (25-34); MEAN CORPUSCULAR HGB CONC 32 G/DL (32-36); MEAN CORPUSCULAR VOLUME 89 FL (80-99); MEAN PLATELET VOLUME 9.6 FL (7.4-10.4); MONOCYTES # (AUTO) 0.7 X 10^3 (0.0-1.0); MONOCYTES % (AUTO) 7 % (0-12); NEUTROPHILS # (AUTO) 8.1 X 10^3 (1.8-7.8); NEUTROPHILS % (AUTO) 83 % (42-75); PLATELET COUNT 181 10^3/uL (130-400); RED BLOOD COUNT 3.21 10^6/uL (4.35-5.85); RED CELL DISTRIBUTION WIDTH 14.6 % (10.0-14.5); WHITE BLOOD COUNT 9.7 10^3/uL (4.3-11.0)
[2017-05-07 05:14] LABS: PROTHROMBIN TIME PATIENT 13.2 SEC (12.2-14.7)
[2017-05-07 05:28] LABS: ALANINE AMINOTRANSFERASE 24 U/L (0-55); ALBUMIN 2.6 GM/DL (3.2-4.5); ANION GAP 7 MMOL/L (5-14); ASPARTATE AMINO TRANSFERASE 18 U/L (5-34); BILIRUBIN,TOTAL 0.3 MG/DL (0.1-1.0); BLOOD UREA NITROGEN 21 MG/DL (7-18); BUN/CREATININE RATIO 27; CALCIUM 8.1 MG/DL (8.5-10.1); CARBON DIOXIDE 26 MMOL/L (21-32); CHLORIDE 109 MMOL/L (98-107); CREATININE SERUM 0.77 MG/DL (0.60-1.30); GFR ESTIMATED > 60; GLUCOSE 150 MG/DL (70-105); MAGNESIUM 1.8 MG/DL (1.8-2.4); PHOSPHORUS 2.3 MG/DL (2.3-4.7); SODIUM 142 MMOL/L (135-145); TOTAL PROTEIN 4.5 GM/DL (6.4-8.2)
[2017-05-07] MEDS: HYDROCORTISONE 100 MG/2 ML (Solu-CORTEF) VIAL IV SCH (06:26)
[2017-05-07] MEDS: AMPICILLIN/SULBACTAM INJECTION 1.5 GM in NS (IVPB) 50 ML IV SCH ×3 (06:27→22:07)
[2017-05-07] MEDS: KCL 20 MEQ TAB (K-DUR) PO SCH (06:36)
[2017-05-07] MEDS: D5W 1000 ML IV SOLUTION 1,000 ML IV SCH (06:37)
[2017-05-07] MEDS ORDERED: TROUGH ORDER-PHARMACY XX NR (07:00)
[2017-05-07] MEDS: POTASSIUM CL 10MEQ/50ML IVPB 50 ML IV SCH ×5 (07:02→11:34)
[2017-05-07] MEDS: FAMOTIDINE 20 MG (PEPCID) TABLET PO SCH (08:04)
[2017-05-07] MEDS ORDERED: FUROSEMIDE 40 MG/4 ML INJ (LASIX) IVP NR (08:30)
--- NOTE | 2017-05-07 08:39 | Cardiology Progress Note ---
Subjective Date Seen by Provider: May 07, 2017 Time Seen by Provider: 08:36 Subjective/Events-last exam patient is laying down in bed, still having abdominal distention and mild shortness of breath. No chest pain. Review of Systems General: No Chills, No Night Sweats, No Fatigue, No Malaise, No Appetite, No Other HEENT: No Head Aches, No Visual Changes, No Eye Pain, No Ear Pain, No Dysphasia , No Sinus Congestion, No Post Nasal Drip, No Sore Throat, No Other Pulmonary: Dyspnea, No Cough, No Pleuritic Chest Pain, No Other Cardiovascular: Edema, No: Chest Pain, Lt Headedness, Orthopnea, Other, Palpitations, Paroxysmal Noc. Dyspnea Objective-Cardiology Exam Last Set of Vital Signs Vital Signs 05/07/17 05/07/17 01:07 06:00 Temp 98.1 Pulse 93 Resp 36 B/P (MAP) 144/82 Pulse Ox 95 O2 Delivery Nasal Cannula O2 Flow Rate 2.00 Capillary Refill : NONENONE I&O Intake and Output 05/07/17 00:00 Intake Total 3150 ml Output Total 3850 ml Balance -700 ml Intake Oral 1350 ml IV Total 1800 ml Output Urine Total 3850 ml General: Alert, Oriented X3, Cooperative HEENT: Atraumatic, PERRLA Neck: Supple, No JVD, No Thyromegaly Lungs: Clear to Auscultation, Normal Air Movement Heart: Regular Rate, Normal S1, Normal S2, No Murmurs Abdomen: Soft, No Hepatosplenomegaly, No Masses, Other (urostomy tube) Extremities: No Clubbing, No Cyanosis, Normal Pulses, Other (mild edema) Skin: No Rashes Neuro: Sensation Intact, Other (spina bifida) Psych/Mental Status: Mental Status NL, Mood NL Results Lab Laboratory Tests 05/07/17 04:30 A/P-Cardiology Admission Diagnosis Anasarca Sepsis Urinary tract infection Spina bifida Assessment/Plan Fluid overload, elevated BNP level, I will give additional dose of Lasix today, continue to monitor output, echo is pending. Hypokalemia, being replaced per ICU protocol. Sepsis and hypovolemic shock secondary to urinary tract infection, receiving antibiotics, improved at this time, continue to monitor blood pressure Bloody diarrhea, workup including C. difficile is negative, followed and managed by Dr. Fuentes Spina bifida with major orthopedic deformities and major disability History of urostomy Clinical Quality Measures DVT/VTE Risk/Contraindication: Risk Factor Score Per Nursin RFS Level Per Nursing on Admit: 4+=Very High MARCO MIR MD May 07, 2017 08:39
--- NOTE | 2017-05-07 09:12 | Diagnostic Imaging Report ---
INDICATION: Shortness of breath. EXAMINATION: Portable chest at 5:54 AM. FINDINGS: There is kyphotic deformity of the spine with scoliosis. The patient has had previous stabilization surgery of the lumbar and lower thoracic spine. The heart size and pulmonary vascularity are normal. There are no infiltrates, effusions, or pneumothoraces. IMPRESSION: No acute abnormalities in the chest. Dictated by: Dictated on workstation # [id number]
--- NOTE | 2017-05-07 09:13 | Progress Note ---
Subjective Date Seen by Provider: May 07, 2017 Time Seen by Provider: 09:08 Subjective/Events-last exam Patient no longer bloody bowel movements. Hemoglobin stable compared to yesterday. Patient with no new complaints. Denies any significant abdominal pain. He does state that he does occasionally get little bit distention and pressure on his abdomen but then relieves itself. He states is been going on for quite a while both inpatient and outpatient. Not much of an appetite. Urostomy functioning. Objective Exam Vital Signs Date Time Temp Pulse Resp B/P (MAP) Pulse Ox O2 Delivery O2 Flow Rate FiO2 05/07/17 09:03 97 Nasal Cannula 2.00 05/07/17 07:00 60 05/07/17 06:00 93 36 144/82 95 Nasal Cannula 2.00 05/07/17 05:00 54 34 136/72 99 Nasal Cannula 2.00 05/07/17 04:00 93 Room Air 05/07/17 04:00 44 24 105/54 99 Nasal Cannula 2.00 05/07/17 03:00 59 34 106/52 100 Room Air 05/07/17 02:00 47 30 90/54 93 Room Air 05/07/17 01:07 98.1 63 11 104/55 93 Room Air 05/07/17 01:00 46 05/07/17 00:00 55 15 104/55 92 Nasal Cannula 2.00 05/07/17 00:00 93 Room Air 05/06/17 23:00 57 12 115/67 93 Nasal Cannula 2.00 05/06/17 22:00 76 25 108/53 93 Nasal Cannula 2.00 05/06/17 21:00 75 15 99/41 97 Nasal Cannula 2.00 05/06/17 20:49 98.9 82 15 86/57 99 Nasal Cannula 2.00 05/06/17 20:00 Nasal Cannula 2.00 05/06/17 20:00 73 23 86/56 89 Nasal Cannula 2.00 05/06/17 19:00 90 17 113/61 95 Nasal Cannula 2.00 05/06/17 19:00 92 05/06/17 18:00 98.7 05/06/17 18:00 59 18 145/70 98 Nasal Cannula 2.00 05/06/17 17:00 53 15 119/72 96 Nasal Cannula 2.00 05/06/17 16:00 48 15 115/66 96 Nasal Cannula 2.00 05/06/17 16:00 Nasal Cannula 2.00 05/06/17 15:00 78 13 102/92 96 Nasal Cannula 2.00 05/06/17 14:00 50 17 134/90 97 Nasal Cannula 2.00 05/06/17 13:00 80 05/06/17 13:00 80 20 149/106 94 Nasal Cannula 2.00 05/06/17 12:00 75 18 106/77 94 Nasal Cannula 2.00 05/06/17 12:00 Nasal Cannula 2.00 05/06/17 12:00 99.4 05/06/17 11:00 88 16 125/65 94 Nasal Cannula 2.00 05/06/17 10:00 92 18 94 Nasal Cannula 2.00 I & O 05/07/17 07:00 Intake Total 3877 ml Output Total 4025 ml Balance -148 ml Capillary Refill : NONENONE General Appearance: WD/WN HEENT: PERRL/EOMI, TMs Normal, Normal ENT Inspection, Pharynx Normal Neck: Normal Inspection, Supple Respiratory: Chest Non Tender, No Accessory Muscle Use, No Respiratory Distress Cardiovascular: Regular Rate, Rhythm, Normal Peripheral Pulses Peripheral Pulses: 1+ Radial Pulses (R), 1+ Radial Pulses (L) Gastrointestinal: non tender, soft Extremity: Other (Left Lower Extremity, Other Extremities Nontender) Neurologic/Psychiatric: Alert, Oriented x3 Skin: Normal Color, Warm/Dry Lymphatic: No Adenopathy Results Lab Laboratory Tests 05/06/17 12:37: B-Type Natriuretic Peptide 745.7H 05/06/17 12:54: Glucometer 138H 05/07/17 00:30: Glucometer 166H 05/07/17 04:30: White Blood Count 9.7, Red Blood Count 3.21L, Hemoglobin 9.1L, Hematocrit 29L, Mean Corpuscular Volume 89, Mean Corpuscular Hemoglobin 28, Mean Corpuscular Hemoglobin Concent 32, Red Cell Distribution Width 14.6H, Platelet Count 181, Mean Platelet Volume 9.6, Neutrophils (%) (Auto) 83H, Lymphocytes (%) (Auto) 10L , Monocytes (%) (Auto) 7, Eosinophils (%) (Auto) 0, Basophils (%) (Auto) 0, Neutrophils # (Auto) 8.1H, Lymphocytes # (Auto) 0.9L, Monocytes # (Auto) 0.7, Eosinophils # (Auto) 0.0, Basophils # (Auto) 0.0, Prothrombin Time 13.2, INR Comment 1.0, Activated Partial Thromboplast Time 45H, Sodium Level 142, Potassium Level 3.0L, Chloride Level 109H, Carbon Dioxide Level 26, Anion Gap 7 , Blood Urea Nitrogen 21H, Creatinine 0.77, Estimat Glomerular Filtration Rate > 60, BUN/Creatinine Ratio 27, Glucose Level 150H, Calcium Level 8.1L, Phosphorus Level 2.3, Magnesium Level 1.8, Total Bilirubin 0.3, Aspartate Amino Transf (AST/SGOT) 18, Alanine Aminotransferase (ALT/SGPT) 24, Alkaline Phosphatase 62, Total Protein 4.5L, Albumin 2.6L, Vancomycin Level Trough 15.5 05/07/17 06:52: Vancomycin Level Trough 13.4 Microbiology 05/04/17 Blood Culture - Preliminary, Resulted No growth 05/04/17 C. difficile GDH Antigen & Toxins - Final, Complete 05/04/17 MRSA Screen - Final, Complete MRSA not isolated 05/04/17 Urine Culture - Final, Complete Escherichia Coli Enterococcus Faecalis Assessment/Plan Assessment/Plan Assessment/Plan severe sepsis likely secondary to UTI Bloody diarrhea. C diff from ft scot reported negative, no more bloody diarrhea Hemorrhoid On abx, iv hydration follow hgb, hemoglobin stable transfuse as needed no surgical intervention at this time, colonoscopy outpatient for further evaluation if not inpatient will follow Clinical Quality Measures DVT/VTE Risk/Contraindication: Risk Factor Score Per Nursin RFS Level Per Nursing on Admit: 4+=Very High MANUEL MARIO DO May 07, 2017 09:13
--- NOTE | 2017-05-07 09:46 | Progress Note-Hospitalist ---
Progress Note HPI/CC on Admission Patient was accepted as a direct admission to the ICU for septic shock and hypovolemic shock from [facility] after given 3 L of fluid in the ER and was placed on dopamine pressor during transport due to SBP of 70 and he was changed to Levophed placed on empiric abx with aggressive IV fluid resuscitation and Dr. Crowe was consulted. Updated the family on the plan all in agreement and will monitor closely in the ICU and consult Dr. Fuentes for bloody diarrhea placed back on Imodium home medication since that would not be harmful and can delay transit time to improve loose stools. Progress Notes/Assess & Plan Date Seen 05/07/17 Time Seen by Provider: 09:30 Admission Dx/Process Septic with hypovolumic shock Spina bifida with profound disability Chronic skin breakdown propensity for pressure ulcers HTN as outpatient Bloody diarrhea Diagonsis/Assessment & Plan Pt doing very well since Lasix given Appreciate Dr Cason help Good output from Lasix Updated patient on the plan for SB since his supervisor of operations her mother has surgery tomorrow with Dr Rivera No fever, vital signs stable, pleasant, improved Regular rate and rhythm, clear to auscultation bilaterally much improved from yesterday Noted improved edema Laboratory Tests 05/07/17 04:30 Assessment: Septic and hypovolemic shock due to UTI now w/anasarca and mild pulmonary edema on CXR w/subtle pleural effusion w/hypoxia due to volume overload of 6 liters excess balance now improved on Lasix with diuresis Bloody diarrhea C. difficile negative consulted general surgery but now resolved for now so will monitor only Spina bifida with major orthopedic deformities and major disability Leukocytosis resolved Urostomy Plan: Unasyn to continue Continue Lasix per Cardiology Check ECHO Monitor closely PAULETTE LEUNG DO May 07, 2017 09:46
[2017-05-07] MEDS ORDERED: amLODIPine 2.5MG (NORVASC) TAB PO NR (10:00)
--- NOTE | 2017-05-07 10:43 | Pulmonary Progress Note ---
Subjective Time Seen by Provider: 10:42 Subjective/Events-last exam Pt feels much improved currently. Exam Exam Vital Signs Date Time Temp Pulse Resp B/P (MAP) Pulse Ox O2 Delivery O2 Flow Rate FiO2 05/07/17 09:03 97 Nasal Cannula 2.00 05/07/17 07:00 60 05/07/17 06:00 93 36 144/82 95 Nasal Cannula 2.00 05/07/17 05:00 54 34 136/72 99 Nasal Cannula 2.00 05/07/17 04:00 93 Room Air 05/07/17 04:00 44 24 105/54 99 Nasal Cannula 2.00 05/07/17 03:00 59 34 106/52 100 Room Air 05/07/17 02:00 47 30 90/54 93 Room Air 05/07/17 01:07 98.1 63 11 104/55 93 Room Air 05/07/17 01:00 46 05/07/17 00:00 55 15 104/55 92 Nasal Cannula 2.00 05/07/17 00:00 93 Room Air 05/06/17 23:00 57 12 115/67 93 Nasal Cannula 2.00 05/06/17 22:00 76 25 108/53 93 Nasal Cannula 2.00 05/06/17 21:00 75 15 99/41 97 Nasal Cannula 2.00 05/06/17 20:49 98.9 82 15 86/57 99 Nasal Cannula 2.00 05/06/17 20:00 Nasal Cannula 2.00 05/06/17 20:00 73 23 86/56 89 Nasal Cannula 2.00 05/06/17 19:00 90 17 113/61 95 Nasal Cannula 2.00 05/06/17 19:00 92 05/06/17 18:00 98.7 05/06/17 18:00 59 18 145/70 98 Nasal Cannula 2.00 05/06/17 17:00 53 15 119/72 96 Nasal Cannula 2.00 05/06/17 16:00 48 15 115/66 96 Nasal Cannula 2.00 05/06/17 16:00 Nasal Cannula 2.00 05/06/17 15:00 78 13 102/92 96 Nasal Cannula 2.00 05/06/17 14:00 50 17 134/90 97 Nasal Cannula 2.00 05/06/17 13:00 80 05/06/17 13:00 80 20 149/106 94 Nasal Cannula 2.00 05/06/17 12:00 75 18 106/77 94 Nasal Cannula 2.00 05/06/17 12:00 Nasal Cannula 2.00 05/06/17 12:00 99.4 05/06/17 11:00 88 16 125/65 94 Nasal Cannula 2.00 I & O 05/07/17 07:00 Intake Total 3877 ml Output Total 4025 ml Balance -148 ml General Appearance: No Apparent Distress, WD/WN, Chronically ill HEENT: Normal ENT Inspection Neck: Normal Inspection, Non Tender, Supple Respiratory: No Accessory Muscle Use, No Respiratory Distress Cardiovascular: Regular Rate, Rhythm Capillary Refill: NONE Peripheral Pulses: 1+ Radial Pulses (R), 1+ Radial Pulses (L) Gastrointestinal: soft Extremity: Normal Capillary Refill, Normal Inspection, Normal Range of Motion, Non Tender, No Pedal Edema Neurologic/Psychiatric: Alert, Oriented x3, Normal Mood/Affect, Other Skin: Normal Color, Warm/Dry Lymphatic: No Adenopathy Results Lab Laboratory Tests 05/06/17 04:00 05/06/17 06:00 05/07/17 04:30 Assessment/Plan Assessment/Plan Severe Sepsis with septic shock probably secondary to UTI - now much improved -Hep lock IVF -d/c Solu Cortef -off Levophed - vanco and zosyn -Obtain piper cultures Metabolic acidosis -improved Spina Bifida hx 233 Will transfer to 4th floor. Pt is doing much better. Clinical Quality Measures DVT/VTE Risk/Contraindication: Risk Factor Score Per Nursin RFS Level Per Nursing on Admit: 4+=Very High ARIEL HART DO May 07, 2017 10:43
--- NOTE | 2017-05-07 11:48 | Physician Query Clarification ---
PQ-Link Infection to Dev/Proc Admission/Discharge Admission Date: May 04, 2017 at 05:22 Discharge Date: The medical record reflects the following clinical scenario: History/Risk Factors: Spina Bifida Urostomy Clinical Findings: Documented severe sepsis Documented UTI with Urine Specific [place] 1.010, Urine Protein 3+, Urine Leukocyte Esterase 3+, Urine RBC (auto) 3+, Urine WBC 5-10, Urine Bacteria Large Urine Culture- E Coli >100,000/ML Enterococcus Faecalis> 100,000/ML Treatment: IV Vancomycin HCI, IV Piperacillin Sod/Tazobactam Sod/Sodium Chloride Question: Can you specify if the (Sepsis with UTI) is due to/associated with the urostomy? Also, please document responsible organism. Please document a response below. PHYSICIAN RESPONSE Specify if infection: Yes,due to/associated with procdure Explanation of clincal finding Due to e coli and enterococcus In responding to this query, please exercise your independent professional judgment. The purpose of this communication is to more accurately reflect the complexity of your patients condition. The fact that a question is asked does not imply that any particular answer is desired or expected. Thank you for your timely response to this clarification. Requestors name: Rosita Haque [facility] Phone # ext [phone] or [phone] THIS PHYSICIAN QUERY FORM IS A PERMANENT PART OF THE MEDICAL RECORD ROSITA HAQUE May 07, 2017 11:48 PAULETTE LEUNG DO May 09, 2017 08:24
--- NOTE | 2017-05-07 11:51 | Pulmonary Procedures ---
Pulmonary Procedures Date of Procedure Date of Service: May 04, 2017 Lumen: triple (US guided) Central Line Procedure: betadine prep, sterile drapes applied Position: internal jugular (L) Anesthesia: Lidocaine Complications: none Post Position: sutured, good blood return, position confirmed w/ CXR ARIEL HART DO May 07, 2017 11:51
[2017-05-07] MEDS: amLODIPine 2.5MG (NORVASC) TAB PO SCH (22:17)
[2017-05-08] VITALS (7 sets, daily range): BP systolic 104–135; BP diastolic 57–61
[2017-05-08] MEDS: AMPICILLIN/SULBACTAM INJECTION 1.5 GM in NS (IVPB) 50 ML IV SCH ×3 (06:13→21:58)
[2017-05-08 06:33] LABS: BASOPHILS % (AUTO) 0 % (0-10); EOSINOPHILS # (AUTO) 0.3 10^3/uL (0.0-0.3); EOSINOPHILS % (AUTO) 3 % (0-10); LYMPHOCYTES # (AUTO) 2.7 X 10^3 (1.0-4.0); LYMPHOCYTES % (AUTO) 29 % (12-44); MEAN CORPUSCULAR HEMOGLOBIN 28 PG (25-34); MEAN CORPUSCULAR HGB CONC 32 G/DL (32-36); MEAN CORPUSCULAR VOLUME 90 FL (80-99); MEAN PLATELET VOLUME 9.2 FL (7.4-10.4); MONOCYTES % (AUTO) 11 % (0-12); NEUTROPHILS # (AUTO) 5.3 X 10^3 (1.8-7.8); NEUTROPHILS % (AUTO) 57 % (42-75); PLATELET COUNT 194 10^3/uL (130-400); RED BLOOD COUNT 3.46 10^6/uL (4.35-5.85); RED CELL DISTRIBUTION WIDTH 14.6 % (10.0-14.5); WHITE BLOOD COUNT 9.4 10^3/uL (4.3-11.0)
[2017-05-08 06:55] LABS: ALANINE AMINOTRANSFERASE 24 U/L (0-55); ALBUMIN 2.7 GM/DL (3.2-4.5); ANION GAP 6 MMOL/L (5-14); ASPARTATE AMINO TRANSFERASE 23 U/L (5-34); BILIRUBIN,TOTAL 0.4 MG/DL (0.1-1.0); BLOOD UREA NITROGEN 14 MG/DL (7-18); BUN/CREATININE RATIO 23; CALCIUM 8.2 MG/DL (8.5-10.1); CARBON DIOXIDE 29 MMOL/L (21-32); CHLORIDE 111 MMOL/L (98-107); CREATININE SERUM 0.62 MG/DL (0.60-1.30); GFR ESTIMATED > 60; GLUCOSE 80 MG/DL (70-105); POTASSIUM 3.7 MMOL/L (3.6-5.0); SODIUM 146 MMOL/L (135-145); TOTAL PROTEIN 4.7 GM/DL (6.4-8.2)
--- NOTE | 2017-05-08 08:18 | Cardiology Progress Note ---
Subjective Date Seen by Provider: May 08, 2017 Time Seen by Provider: 08:16 Subjective/Events-last exam Patient in bed, no new complaints. Reports he has arrangements through clinical social work therapist for transportations home tomorrow afternoon. Denies any CP or dyspnea. Review of Systems General: No Night Sweats, No Fatigue, No Malaise HEENT: No Visual Changes, No Dysphasia Pulmonary: No Dyspnea, No Cough Cardiovascular: No: Chest Pain, Orthopnea, Palpitations Gastrointestinal: No: Abdominal Pain, Nausea, Vomiting Genitourinary: No Dysuria, No Frequency Musculoskeletal: No: back pain, neck pain Neurological: No: Change in speech, Confusion, Numbness, Weakness Objective-Cardiology Exam Last Set of Vital Signs Vital Signs 05/08/17 05/08/17 07:26 07:58 Temp 97.1 Pulse 72 Resp 20 B/P (MAP) 135/61 Pulse Ox 95 O2 Delivery Room Air O2 Flow Rate 1.50 Capillary Refill : Less Than 3 SecondsNONE I&O Intake and Output 05/08/17 00:00 Intake Total 2797 ml Output Total 2425 ml Balance 372 ml Intake Oral 1320 ml IV Total 1477 ml Output Urine Total 2425 ml # Bowel Movements 1 General: Alert, Oriented X3, Cooperative HEENT: Atraumatic, PERRLA Neck: Supple, No JVD, No Thyromegaly Lungs: Clear to Auscultation, Normal Air Movement Heart: Regular Rate, Normal S1, Normal S2, No Murmurs Abdomen: Soft, No Hepatosplenomegaly, No Masses, Other (urostomy tube) Extremities: No Clubbing, No Cyanosis, Normal Pulses, Other (mild edema) Skin: No Rashes Neuro: Sensation Intact, Other (spina bifida) Psych/Mental Status: Mental Status NL, Mood NL Results Lab Laboratory Tests 05/07/17 14:50 05/08/17 06:20 A/P-Cardiology Admission Diagnosis Anasarca Sepsis Urinary tract infection Spina bifida Assessment/Plan Fluid overload, elevated BNP level, responded to Lasix, continue to monitor. Echo is pending. Hypokalemia,replaced, improved, continue to monitor. Sepsis and hypovolemic shock secondary to urinary tract infection, receiving antibiotics, improved at this time, continue to monitor blood pressure Bloody diarrhea, workup including C. difficile is negative, followed and managed by Dr. Fuentes Spina bifida with major orthopedic deformities and major disability History of urostomy Clinical Quality Measures DVT/VTE Risk/Contraindication: Risk Factor Score Per Nursin RFS Level Per Nursing on Admit: 4+=Very High BETH COLEMAN May 08, 2017 08:18
[2017-05-08] MEDS: FAMOTIDINE 20 MG (PEPCID) TABLET PO SCH (08:52)
[2017-05-08] MEDS: amLODIPine 2.5MG (NORVASC) TAB PO SCH ×2 (08:52→20:50)
[2017-05-08] MEDS: lisINopril 10 MG (PRINIVIL) TAB PO SCH (08:52)
--- NOTE | 2017-05-08 10:42 | Progress Note ---
Subjective Time Seen by Provider: 10:00 Subjective/Events-last exam patient is resting in bed. No signs of distress or discomfort is noted. Patient denies diarrhea or bloody stools. Patient also denies nausea or vomiting. Objective Exam Vital Signs Date Time Temp Pulse Resp B/P (MAP) Pulse Ox O2 Delivery O2 Flow Rate FiO2 05/08/17 07:58 97.1 72 20 135/61 95 Room Air 05/08/17 07:26 96 Nasal Cannula 1.50 05/08/17 04:00 98.6 81 20 119/58 96 Room Air 05/07/17 23:45 96.6 75 20 113/52 97 Nasal Cannula 2.00 05/07/17 21:00 Nasal Cannula 2.00 05/07/17 19:18 98.9 95 16 125/58 96 Nasal Cannula 2.00 05/07/17 15:55 99.5 90 16 103/52 95 Nasal Cannula 2.00 05/07/17 15:54 99.5 90 16 103/52 95 Nasal Cannula 2.00 05/07/17 12:03 Nasal Cannula 2.00 05/07/17 11:19 97.4 59 20 170/84 96 Nasal Cannula 2.00 I & O 05/08/17 07:00 Intake Total 2120 ml Output Total 1975 ml Balance 145 ml Capillary Refill : Less Than 3 SecondsNONE General Appearance: No Apparent Distress, WD/WN, Chronically ill HEENT: Normal ENT Inspection Neck: Normal Inspection, Non Tender, Supple Respiratory: No Accessory Muscle Use, No Respiratory Distress Cardiovascular: Regular Rate, Rhythm Peripheral Pulses: 1+ Radial Pulses (R), 1+ Radial Pulses (L) Gastrointestinal: soft Extremity: Normal Capillary Refill, Normal Inspection, Normal Range of Motion, Non Tender, No Pedal Edema Neurologic/Psychiatric: Alert, Oriented x3, Normal Mood/Affect, Other Skin: Normal Color, Warm/Dry Lymphatic: No Adenopathy Results Lab Laboratory Tests Test 05/06/17 12:37 05/06/17 12:54 05/07/17 00:30 05/07/17 04:30 Range/Units B-Type Natriuretic Peptide 745.7 H <100.0 PG/ML Glucometer 138 H 166 H 70-110 MG/DL White Blood Count 9.7 4.3-11.0 10^3/uL Red Blood Count 3.21 L 4.35-5.85 10^6/uL Hemoglobin 9.1 L 13.3-17.7 G/DL Hematocrit 29 L 40-54 % Mean Corpuscular Volume 89 80-99 FL Mean Corpuscular Hemoglobin 28 25-34 PG Mean Corpuscular Hemoglobin Concent 32 32-36 G/DL Red Cell Distribution Width 14.6 H 10.0-14.5 % Platelet Count 181 130-400 10^3/uL Mean Platelet Volume 9.6 7.4-10.4 FL Neutrophils (%) (Auto) 83 H 42-75 % Lymphocytes (%) (Auto) 10 L 12-44 % Monocytes (%) (Auto) 7 0-12 % Eosinophils (%) (Auto) 0 0-10 % Basophils (%) (Auto) 0 0-10 % Neutrophils # (Auto) 8.1 H 1.8-7.8 X 10^3 Lymphocytes # (Auto) 0.9 L 1.0-4.0 X 10^3 Monocytes # (Auto) 0.7 0.0-1.0 X 10^3 Eosinophils # (Auto) 0.0 0.0-0.3 10^3/uL Basophils # (Auto) 0.0 0.0-0.1 10^3/uL Prothrombin Time 13.2 12.2-14.7 SEC INR Comment 1.0 0.8-1.4 Activated Partial Thromboplast Time 45 H 24-35 SEC Sodium Level 142 135-145 MMOL/L Potassium Level 3.0 L 3.6-5.0 MMOL/L Chloride Level 109 H 98-107 MMOL/L Carbon Dioxide Level 26 21-32 MMOL/L Anion Gap 7 5-14 MMOL/L Blood Urea Nitrogen 21 H 7-18 MG/DL Creatinine 0.77 0.60-1.30 MG/DL Estimat Glomerular Filtration Rate > 60 BUN/Creatinine Ratio 27 Glucose Level 150 H 70-105 MG/DL Calcium Level 8.1 L 8.5-10.1 MG/DL Phosphorus Level 2.3 2.3-4.7 MG/DL Magnesium Level 1.8 1.8-2.4 MG/DL Total Bilirubin 0.3 0.1-1.0 MG/DL Aspartate Amino Transf (AST/SGOT) 18 5-34 U/L Alanine Aminotransferase (ALT/SGPT) 24 0-55 U/L Alkaline Phosphatase 62 40-136 U/L Total Protein 4.5 L 6.4-8.2 GM/DL Albumin 2.6 L 3.2-4.5 GM/DL Vancomycin Level Trough 15.5 10.0-20.0 UG/ML Test 05/07/17 06:52 05/07/17 14:50 05/08/17 06:20 Range/Units Vancomycin Level Trough 13.4 10.0-20.0 UG/ML Potassium Level 3.8 3.7 3.6-5.0 MMOL/L White Blood Count 9.4 4.3-11.0 10^3/uL Red Blood Count 3.46 L 4.35-5.85 10^6/uL Hemoglobin 9.8 L 13.3-17.7 G/DL Hematocrit 31 L 40-54 % Mean Corpuscular Volume 90 80-99 FL Mean Corpuscular Hemoglobin 28 25-34 PG Mean Corpuscular Hemoglobin Concent 32 32-36 G/DL Red Cell Distribution Width 14.6 H 10.0-14.5 % Platelet Count 194 130-400 10^3/uL Mean Platelet Volume 9.2 7.4-10.4 FL Neutrophils (%) (Auto) 57 42-75 % Lymphocytes (%) (Auto) 29 12-44 % Monocytes (%) (Auto) 11 0-12 % Eosinophils (%) (Auto) 3 0-10 % Basophils (%) (Auto) 0 0-10 % Neutrophils # (Auto) 5.3 1.8-7.8 X 10^3 Lymphocytes # (Auto) 2.7 1.0-4.0 X 10^3 Monocytes # (Auto) 1.0 0.0-1.0 X 10^3 Eosinophils # (Auto) 0.3 0.0-0.3 10^3/uL Basophils # (Auto) 0.0 0.0-0.1 10^3/uL Sodium Level 146 H 135-145 MMOL/L Chloride Level 111 H 98-107 MMOL/L Carbon Dioxide Level 29 21-32 MMOL/L Anion Gap 6 5-14 MMOL/L Blood Urea Nitrogen 14 7-18 MG/DL Creatinine 0.62 0.60-1.30 MG/DL Estimat Glomerular Filtration Rate > 60 BUN/Creatinine Ratio 23 Glucose Level 80 70-105 MG/DL Calcium Level 8.2 L 8.5-10.1 MG/DL Total Bilirubin 0.4 0.1-1.0 MG/DL Aspartate Amino Transf (AST/SGOT) 23 5-34 U/L Alanine Aminotransferase (ALT/SGPT) 24 0-55 U/L Alkaline Phosphatase 67 40-136 U/L B-Type Natriuretic Peptide 323.4 H <100.0 PG/ML Total Protein 4.7 L 6.4-8.2 GM/DL Albumin 2.7 L 3.2-4.5 GM/DL Laboratory Tests 05/07/17 14:50: Potassium Level 3.8 05/08/17 06:20: Potassium Level 3.7, White Blood Count 9.4, Red Blood Count 3.46L, Hemoglobin 9.8L, Hematocrit 31L, Mean Corpuscular Volume 90, Mean Corpuscular Hemoglobin 28 , Mean Corpuscular Hemoglobin Concent 32, Red Cell Distribution Width 14.6H, Platelet Count 194, Mean Platelet Volume 9.2, Neutrophils (%) (Auto) 57, Lymphocytes (%) (Auto) 29, Monocytes (%) (Auto) 11, Eosinophils (%) (Auto) 3, Basophils (%) (Auto) 0, Neutrophils # (Auto) 5.3, Lymphocytes # (Auto) 2.7, Monocytes # (Auto) 1.0, Eosinophils # (Auto) 0.3, Basophils # (Auto) 0.0, Sodium Level 146H, Chloride Level 111H, Carbon Dioxide Level 29, Anion Gap 6, Blood Urea Nitrogen 14, Creatinine 0.62, Estimat Glomerular Filtration Rate > 60 , BUN/Creatinine Ratio 23, Glucose Level 80, Calcium Level 8.2L, Total Bilirubin 0.4, Aspartate Amino Transf (AST/SGOT) 23, Alanine Aminotransferase ( ALT/SGPT) 24, Alkaline Phosphatase 67, B-Type Natriuretic Peptide 323.4H, Total Protein 4.7L, Albumin 2.7L Microbiology 05/04/17 Blood Culture - Preliminary, Resulted No growth 05/04/17 C. difficile GDH Antigen & Toxins - Final, Complete 05/04/17 MRSA Screen - Final, Complete MRSA not isolated 05/04/17 Urine Culture - Final, Complete Escherichia Coli Enterococcus Faecalis Assessment/Plan Assessment/Plan Assessment/Plan severe sepsis likely secondary to UTI Bloody diarrhea. C diff from ft scot reported negative, no more bloody diarrhea Hemorrhoid On abx, iv hydration follow hgb, hemoglobin stable transfuse as needed no surgical intervention at this time, Discussed possibility of colonoscopy outpatient for further evaluation Alfredo- patient feeling better. Tolerating diet. No bloody bm. Occasional diarrhea, but much improved he states. Denies fever sweats chills shortness of breath or chest pain. general no acute distress heart reg lungs nonlabored ext nontender, left leg absent normal mood affect alert and oriented assessment as above hgb stable, would recommend colonoscopy as outpatient in near future for screening since patient is 56 no change in care plan. Clinical Quality Measures DVT/VTE Risk/Contraindication: Risk Factor Score Per Nursin RFS Level Per Nursing on Admit: 4+=Very High KERRI STRICKLAND APRN May 08, 2017 10:42 MANUEL MARIO DO May 08, 2017 15:16
--- NOTE | 2017-05-08 12:14 | Cardiology Progress Note ---
Subjective Date Seen by Provider: May 08, 2017 Time Seen by Provider: 12:00 Subjective/Events-last exam patient is feeling better, breathing better, edema is better. Objective-Cardiology Exam Last Set of Vital Signs Vital Signs 05/08/17 05/08/17 07:58 09:00 Temp 97.1 Pulse 72 Resp 20 B/P (MAP) 135/61 Pulse Ox 95 O2 Delivery Nasal Cannula O2 Flow Rate 2.00 Capillary Refill : NONENONE I&O Intake and Output 05/08/17 00:00 Intake Total 2797 ml Output Total 2425 ml Balance 372 ml Intake Oral 1320 ml IV Total 1477 ml Output Urine Total 2425 ml # Bowel Movements 1 General: Alert, Oriented X3, Cooperative HEENT: Atraumatic, PERRLA Neck: Supple, No JVD, No Thyromegaly Lungs: Clear to Auscultation, Normal Air Movement Heart: Regular Rate, Normal S1, Normal S2, No Murmurs Abdomen: Soft, No Hepatosplenomegaly, No Masses, Other (urostomy tube) Extremities: No Clubbing, No Cyanosis, Normal Pulses, Other (mild edema) Skin: No Rashes Neuro: Sensation Intact, Other (spina bifida) Psych/Mental Status: Mental Status NL, Mood NL Results Lab Laboratory Tests 05/07/17 14:50 05/08/17 06:20 A/P-Cardiology Admission Diagnosis Anasarca Sepsis Urinary tract infection Spina bifida Assessment/Plan Fluid overload, elevated BNP level, improved after receiving Lasix. Continue to monitor, echocardiogram was normal, PA pressure is normal. Sepsis and hypovolemic shock secondary to urinary tract infection, receiving antibiotics, improved at this time, continue to monitor blood pressure Bloody diarrhea, workup including C. difficile is negative, followed and managed by Dr. Fuentes Spina bifida with major orthopedic deformities and major disability History of urostomy Clinical Quality Measures DVT/VTE Risk/Contraindication: Risk Factor Score Per Nursin RFS Level Per Nursing on Admit: 4+=Very High MARCO MIR MD May 08, 2017 12:14
--- NOTE | 2017-05-08 13:26 | Progress Note-Hospitalist ---
Standard Progress Note Progress Notes/Assess & Plan Date Seen 05/08/17 Time Seen by Provider: 13:24 Diagnosis Septic with hypovolumic shock Spina bifida with profound disability Chronic skin breakdown propensity for pressure ulcers HTN as outpatient Bloody diarrhea Assess & Plan/Chief Complaint The patient reports that he is feeling much better. He also states that he is very thankful for the care he has received here and the attention to detail. His discharge is planned for tomorrow and transportation is being arranged. Physical exam: He is alert and oriented. He exhibits thoracic deformity with a barrel chest. Lungs are clear to auscultation. CV is regular. Abdomen is soft. Impression: Sepsis/hypovolemic shock. 2.congenital spinal bifida and resultant disability. Plan: Complete present therapy. Plan discharge for tomorrow. Labs Laboratory Tests 05/07/17 04:30 05/07/17 14:50 05/08/17 06:20 SACHA MIRANDA MD May 08, 2017 13:26
--- NOTE | 2017-05-08 14:48 | Pulmonary Progress Note ---
Subjective Time Seen by Provider: 14:47 Subjective/Events-last exam Pt is now much improved. Exam Exam Vital Signs Date Time Temp Pulse Resp B/P (MAP) Pulse Ox O2 Delivery O2 Flow Rate FiO2 05/08/17 12:24 98.6 90 20 104/59 93 Room Air 05/08/17 09:00 95 Nasal Cannula 2.00 05/08/17 07:58 97.1 72 20 135/61 95 Room Air 05/08/17 07:26 96 Nasal Cannula 1.50 05/08/17 04:00 98.6 81 20 119/58 96 Room Air 05/07/17 23:45 96.6 75 20 113/52 97 Nasal Cannula 2.00 05/07/17 21:00 Nasal Cannula 2.00 05/07/17 19:18 98.9 95 16 125/58 96 Nasal Cannula 2.00 05/07/17 15:55 99.5 90 16 103/52 95 Nasal Cannula 2.00 05/07/17 15:54 99.5 90 16 103/52 95 Nasal Cannula 2.00 I & O 05/08/17 07:00 Intake Total 2120 ml Output Total 1975 ml Balance 145 ml General Appearance: No Apparent Distress, WD/WN, Chronically ill HEENT: Normal ENT Inspection Neck: Normal Inspection, Non Tender, Supple Respiratory: No Accessory Muscle Use, No Respiratory Distress Cardiovascular: Regular Rate, Rhythm Capillary Refill: NONE Peripheral Pulses: 1+ Radial Pulses (R), 1+ Radial Pulses (L) Gastrointestinal: soft Extremity: Normal Capillary Refill, Normal Inspection, Normal Range of Motion, Non Tender, No Pedal Edema Neurologic/Psychiatric: Alert, Oriented x3, Normal Mood/Affect, Other Skin: Normal Color, Warm/Dry Lymphatic: No Adenopathy Results Lab Laboratory Tests 05/07/17 04:30 05/07/17 14:50 05/08/17 06:20 Assessment/Plan Assessment/Plan Severe Sepsis with septic shock probably secondary to UTI - now much improved -Hep lock IVF - vanco and zosyn Metabolic acidosis -improved Spina Bifida hx 232 Clinical Quality Measures DVT/VTE Risk/Contraindication: Risk Factor Score Per Nursin RFS Level Per Nursing on Admit: 4+=Very High ARIEL HART DO May 08, 2017 14:48
[2017-05-08] MEDS ORDERED: CALCIUM CARBONATE 500 MG (TUMS) TAB.CHEW PO PRN (20:00)
[2017-05-09 00:14] VITALS: BP 118/61
[2017-05-09 03:25] VITALS: BP 112/58
[2017-05-09] MEDS: AMPICILLIN/SULBACTAM INJECTION 1.5 GM in NS (IVPB) 50 ML IV SCH ×2 (05:18→13:28)
[2017-05-09 06:35] LABS: BASOPHILS % (AUTO) 0 % (0-10); EOSINOPHILS # (AUTO) 0.3 10^3/uL (0.0-0.3); EOSINOPHILS % (AUTO) 4 % (0-10); LYMPHOCYTES # (AUTO) 2.7 X 10^3 (1.0-4.0); LYMPHOCYTES % (AUTO) 30 % (12-44); MEAN CORPUSCULAR HEMOGLOBIN 28 PG (25-34); MEAN CORPUSCULAR HGB CONC 31 G/DL (32-36); MEAN CORPUSCULAR VOLUME 91 FL (80-99); MONOCYTES % (AUTO) 10 % (0-12); NEUTROPHILS # (AUTO) 5.1 X 10^3 (1.8-7.8); NEUTROPHILS % (AUTO) 56 % (42-75); PLATELET COUNT 181 10^3/uL (130-400); RED BLOOD COUNT 3.33 10^6/uL (4.35-5.85); RED CELL DISTRIBUTION WIDTH 14.7 % (10.0-14.5); WHITE BLOOD COUNT 9.1 10^3/uL (4.3-11.0)
[2017-05-09 06:58] LABS: ALANINE AMINOTRANSFERASE 26 U/L (0-55); ALBUMIN 2.6 GM/DL (3.2-4.5); ANION GAP 7 MMOL/L (5-14); ASPARTATE AMINO TRANSFERASE 21 U/L (5-34); BILIRUBIN,TOTAL 0.4 MG/DL (0.1-1.0); BLOOD UREA NITROGEN 10 MG/DL (7-18); BUN/CREATININE RATIO 17; CALCIUM 8.3 MG/DL (8.5-10.1); CARBON DIOXIDE 32 MMOL/L (21-32); CHLORIDE 106 MMOL/L (98-107); CREATININE SERUM 0.59 MG/DL (0.60-1.30); GFR ESTIMATED > 60; GLUCOSE 82 MG/DL (70-105); POTASSIUM 3.6 MMOL/L (3.6-5.0); SODIUM 145 MMOL/L (135-145); TOTAL PROTEIN 4.5 GM/DL (6.4-8.2)
[2017-05-09 08:03] VITALS: BP 134/73
[2017-05-09] MEDS: amLODIPine 2.5MG (NORVASC) TAB PO SCH (08:11)
[2017-05-09] MEDS: lisINopril 10 MG (PRINIVIL) TAB PO SCH (08:11)
[2017-05-09] MEDS: FAMOTIDINE 20 MG (PEPCID) TABLET PO SCH (08:11)
--- NOTE | 2017-05-09 09:31 | Progress Note ---
Subjective Time Seen by Provider: 08:30 Subjective/Events-last exam Patient resting in bed. Patient denies any pain at this time. Patient is alert and oriented 3. No signs of distress or discomfort is noted. Patient reports that he is ready to go home. Objective Exam Vital Signs Date Time Temp Pulse Resp B/P (MAP) Pulse Ox O2 Delivery O2 Flow Rate FiO2 05/09/17 08:03 97.9 71 20 134/73 96 Nasal Cannula 2.00 05/09/17 03:25 97.9 64 18 112/58 98 Nasal Cannula 2.00 05/09/17 00:14 98.2 65 20 118/61 98 Room Air 05/08/17 21:00 Nasal Cannula 2.00 05/08/17 19:59 99.6 104 18 105/57 93 Nasal Cannula 2.00 05/08/17 16:32 99.8 79 20 122/58 96 Room Air 05/08/17 12:24 98.6 90 20 104/59 93 Room Air I & O 05/09/17 07:00 Intake Total 2430 ml Output Total 2050 ml Balance 380 ml Capillary Refill : NONENONE General Appearance: No Apparent Distress, WD/WN, Chronically ill HEENT: Normal ENT Inspection Neck: Normal Inspection, Non Tender, Supple Respiratory: No Accessory Muscle Use, No Respiratory Distress Cardiovascular: Regular Rate, Rhythm Peripheral Pulses: 1+ Radial Pulses (R), 1+ Radial Pulses (L) Gastrointestinal: soft Extremity: Normal Capillary Refill, Normal Inspection, Normal Range of Motion, Non Tender, No Pedal Edema Neurologic/Psychiatric: Alert, Oriented x3, Normal Mood/Affect, Other Skin: Normal Color, Warm/Dry Lymphatic: No Adenopathy Results Lab Laboratory Tests Test 05/07/17 14:50 05/08/17 06:20 05/09/17 06:27 Range/Units Potassium Level 3.8 3.7 3.6 3.6-5.0 MMOL/L White Blood Count 9.4 9.1 4.3-11.0 10^3/uL Red Blood Count 3.46 L 3.33 L 4.35-5.85 10^6/uL Hemoglobin 9.8 L 9.4 L 13.3-17.7 G/DL Hematocrit 31 L 30 L 40-54 % Mean Corpuscular Volume 90 91 80-99 FL Mean Corpuscular Hemoglobin 28 28 25-34 PG Mean Corpuscular Hemoglobin Concent 32 31 L 32-36 G/DL Red Cell Distribution Width 14.6 H 14.7 H 10.0-14.5 % Platelet Count 194 181 130-400 10^3/uL Mean Platelet Volume 9.2 9.0 7.4-10.4 FL Neutrophils (%) (Auto) 57 56 42-75 % Lymphocytes (%) (Auto) 29 30 12-44 % Monocytes (%) (Auto) 11 10 0-12 % Eosinophils (%) (Auto) 3 4 0-10 % Basophils (%) (Auto) 0 0 0-10 % Neutrophils # (Auto) 5.3 5.1 1.8-7.8 X 10^3 Lymphocytes # (Auto) 2.7 2.7 1.0-4.0 X 10^3 Monocytes # (Auto) 1.0 1.0 0.0-1.0 X 10^3 Eosinophils # (Auto) 0.3 0.3 0.0-0.3 10^3/uL Basophils # (Auto) 0.0 0.0 0.0-0.1 10^3/uL Sodium Level 146 H 145 135-145 MMOL/L Chloride Level 111 H 106 98-107 MMOL/L Carbon Dioxide Level 29 32 21-32 MMOL/L Anion Gap 6 7 5-14 MMOL/L Blood Urea Nitrogen 14 10 7-18 MG/DL Creatinine 0.62 0.59 L 0.60-1.30 MG/DL Estimat Glomerular Filtration Rate > 60 > 60 BUN/Creatinine Ratio 23 17 Glucose Level 80 82 70-105 MG/DL Calcium Level 8.2 L 8.3 L 8.5-10.1 MG/DL Total Bilirubin 0.4 0.4 0.1-1.0 MG/DL Aspartate Amino Transf (AST/SGOT) 23 21 5-34 U/L Alanine Aminotransferase (ALT/SGPT) 24 26 0-55 U/L Alkaline Phosphatase 67 68 40-136 U/L B-Type Natriuretic Peptide 323.4 H <100.0 PG/ML Total Protein 4.7 L 4.5 L 6.4-8.2 GM/DL Albumin 2.7 L 2.6 L 3.2-4.5 GM/DL Laboratory Tests 05/09/17 06:27: White Blood Count 9.1, Red Blood Count 3.33L, Hemoglobin 9.4L, Hematocrit 30L, Mean Corpuscular Volume 91, Mean Corpuscular Hemoglobin 28, Mean Corpuscular Hemoglobin Concent 31L, Red Cell Distribution Width 14.7H, Platelet Count 181, Mean Platelet Volume 9.0, Neutrophils (%) (Auto) 56, Lymphocytes (%) (Auto) 30, Monocytes (%) (Auto) 10, Eosinophils (%) (Auto) 4, Basophils (%) (Auto) 0, Neutrophils # (Auto) 5.1, Lymphocytes # (Auto) 2.7, Monocytes # (Auto) 1.0, Eosinophils # (Auto) 0.3, Basophils # (Auto) 0.0, Sodium Level 145, Potassium Level 3.6, Chloride Level 106, Carbon Dioxide Level 32, Anion Gap 7, Blood Urea Nitrogen 10, Creatinine 0.59L, Estimat Glomerular Filtration Rate > 60, BUN/ Creatinine Ratio 17, Glucose Level 82, Calcium Level 8.3L, Total Bilirubin 0.4, Aspartate Amino Transf (AST/SGOT) 21, Alanine Aminotransferase (ALT/SGPT) 26, Alkaline Phosphatase 68, Total Protein 4.5L, Albumin 2.6L Microbiology 05/04/17 Blood Culture - Preliminary, Resulted No growth 05/04/17 C. difficile GDH Antigen & Toxins - Final, Complete 05/04/17 MRSA Screen - Final, Complete MRSA not isolated 05/04/17 Urine Culture - Final, Complete Escherichia Coli Enterococcus Faecalis Assessment/Plan Assessment/Plan Assessment/Plan severe sepsis likely secondary to UTI Bloody diarrhea. C diff from ft scot reported negative, no more bloody diarrhea Hemorrhoid On abx, iv hydration Patient H&H is stable no surgical intervention at this time, we'll need to follow up outpatient with a colonoscopy. Patient going home today. Fuentes- patient tolerating diet. Patient does not have any more bloody diarrhea. Does not have any abdominal pain. Patient not having any confusion. Patient denies any nausea vomiting fever sweats chills shortness of breath or chest pain. No family at bedside. Gen. patient's in no acute distress Head normocephalic atraumatic eyes nonicteric nares are patent mouth is moist trachea is midline Heart regular Lungs nonlabored breathing Abdomen soft organomegaly no tenderness on palpation, urostomy functioning Extremities left lower extremity absent, nontender extremity Normal mood and affect Alert and oriented Skin without rash Assessment as above. Patient hemoglobin stable this time. Would recommend in near future having outpatient colonoscopy. No surgical interventions this time. Agree with discharge home from surgical standpoint. Clinical Quality Measures DVT/VTE Risk/Contraindication: Risk Factor Score Per Nursin RFS Level Per Nursing on Admit: 4+=Very High KERRI STRICKLAND APRN May 09, 2017 09:31 MANUEL FUENTES DO May 09, 2017 12:13
[2017-05-09] MEDS ORDERED: AMOX-358 PO (10:12)
--- NOTE | 2017-05-09 10:16 | Discharge Summary-Hospitalist ---
Diagnosis/Chief Complaint Date of Admission May 04, 2017 at 05:22 Date of Discharge Discharge Date: May 09, 2017 Admission Diagnosis Septic with hypovolumic shock Spina bifida with profound disability Chronic skin breakdown propensity for pressure ulcers HTN as outpatient Bloody diarrhea Discharge Diagnosis Assessment: Septic and hypovolemic shock due to UTI s/p anasarca and mild pulmonary edema on CXR w/subtle pleural effusion w/hypoxia due to volume overload of 6 liters excess balance now resolved on Lasix with diuresis Bloody diarrhea C. 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 difficile negative consulted general surgery but now resolved for now so will monitor only Spina bifida with major orthopedic deformities and major disability Leukocytosis resolved Urostomy Plan: Unasyn to continue Continue Lasix per Cardiology Check ECHO Monitor closely Reason Hospital Visit/Course Patient was accepted as a direct admission to the ICU for septic shock and hypovolemic shock from [facility] after given 3 L of fluid in the ER and was placed on dopamine pressor during transport due to SBP of 70 and he was changed to Levophed placed on empiric abx with aggressive IV fluid resuscitation and Dr. Crowe was consulted. Updated the family on the plan all in agreement and will monitor closely in the ICU and consult Dr. Fuentes for bloody diarrhea placed back on Imodium home medication since that would not be harmful and can delay transit time to improve loose stools. Notes from 05/09/17 Chart Review: Pt has had 13 L output Pt was 48 kilos upon admission and was up in the 50s, now back to 46 kilos Pharmacy Review: Pt has had 7 days of Augmentin. Pt can stop it today, but it would be better for him to be on 3 more days. Pt has not had Lasix since 05/06 Medical Student Review: Pt has been eating and drinking Pt has had a BM this am Denies pain and other issues Possible DC today. He is fine with that. Patient Interview: Pt confirms DC today Pt confirms [facility] in [facility] as Pharm[facility] Physical exam stable Home O2 was discussed. Pt states that he has never needed it before. Pt is very appreciative of our care AFVSS, pleasant, improved RRR, CTAB no edema Plan: Home O2 eval Lasix Continue Augmentin 3 more days Scribed by Matilda Sanchez under the direct supervision of Dr. Leung. Hospital course: Patient had a lengthy hospital course due to severe septic shock that required ICU admission after direct admission transfer from [facility]. Empiric antibiotics were initiated for resumed UTI due to urostomy status and Escherichia coli and enterococcus resulted on culture so that was narrowed to Unasyn the patient tolerated that well. Home medications were restarted after septic shock with hypotension resolved patient was given a total of 12 L of fluid per protocol and required pressor therapy but once that resolved he began having pulmonary edema and volume overload Lasix was initiated along with cardiology evaluation echocardiogram was reviewed and patient diuresed 20 pounds of fluid with measured 16 L of output with good results. On day of discharge she will require 3 more days of antibiotics close follow-up with Dr. Head and will be available for any type of support the patient needs in the meantime Discharge Summary Discharge Physical Examination Allergies: Coded Allergies: sulfamethoxazole (Verified Allergy, Mild, 05/04/17) trimethoprim (Verified Allergy, Mild, 05/04/17) Vitals & I&Os Vital Signs Date Time Temp Pulse Resp B/P (MAP) Pulse Ox O2 Delivery O2 Flow Rate FiO2 05/09/17 09:00 96 Nasal Cannula 2.00 05/09/17 08:03 97.9 71 20 134/73 Hospital Course Labs (last 24 hrs) Laboratory Tests 05/09/17 06:27: White Blood Count 9.1, Red Blood Count 3.33L, Hemoglobin 9.4L, Hematocrit 30L, Mean Corpuscular Volume 91, Mean Corpuscular Hemoglobin 28, Mean Corpuscular Hemoglobin Concent 31L, Red Cell Distribution Width 14.7H, Platelet Count 181, Mean Platelet Volume 9.0, Neutrophils (%) (Auto) 56, Lymphocytes (%) (Auto) 30, Monocytes (%) (Auto) 10, Eosinophils (%) (Auto) 4, Basophils (%) (Auto) 0, Neutrophils # (Auto) 5.1, Lymphocytes # (Auto) 2.7, Monocytes # (Auto) 1.0, Eosinophils # (Auto) 0.3, Basophils # (Auto) 0.0, Sodium Level 145, Potassium Level 3.6, Chloride Level 106, Carbon Dioxide Level 32, Anion Gap 7, Blood Urea Nitrogen 10, Creatinine 0.59L, Estimat Glomerular Filtration Rate > 60, BUN/ Creatinine Ratio 17, Glucose Level 82, Calcium Level 8.3L, Total Bilirubin 0.4, Aspartate Amino Transf (AST/SGOT) 21, Alanine Aminotransferase (ALT/SGPT) 26, Alkaline Phosphatase 68, Total Protein 4.5L, Albumin 2.6L Microbiology 05/04/17 Blood Culture - Preliminary, Resulted No growth 05/04/17 C. difficile GDH Antigen & Toxins - Final, Complete 05/04/17 MRSA Screen - Final, Complete MRSA not isolated 05/04/17 Urine Culture - Final, Complete Escherichia Coli Enterococcus Faecalis Pending Labs Laboratory Tests 05/09/17 06:27: White Blood Count 9.1, Red Blood Count 3.33, Hemoglobin 9.4, Hematocrit 30, Mean Corpuscular Volume 91, Mean Corpuscular Hemoglobin 28, Mean Corpuscular Hemoglobin Concent 31, Red Cell Distribution Width 14.7, Platelet Count 181, Mean Platelet Volume 9.0, Neutrophils (%) (Auto) 56, Lymphocytes (%) (Auto) 30, Monocytes (%) (Auto) 10, Eosinophils (%) (Auto) 4, Basophils (%) (Auto) 0, Neutrophils # (Auto) 5.1, Lymphocytes # (Auto) 2.7, Monocytes # (Auto) 1.0, Eosinophils # (Auto) 0.3, Basophils # (Auto) 0.0, Sodium Level 145, Potassium Level 3.6, Chloride Level 106, Carbon Dioxide Level 32, Anion Gap 7, Blood Urea Nitrogen 10, Creatinine 0.59, Estimat Glomerular Filtration Rate > 60, BUN/ Creatinine Ratio 17, Glucose Level 82, Calcium Level 8.3, Total Bilirubin 0.4, Aspartate Amino Transf (AST/SGOT) 21, Alanine Aminotransferase (ALT/SGPT) 26, Alkaline Phosphatase 68, Total Protein 4.5, Albumin 2.6 Discharge Home Medications: Active Scripts Active Augmentin 875-125 Tablet (Amoxicillin/Potassium Clav) 1 Each Tablet 1 Each PO BID Reported Anti-Diarrheal (Loperamide HCl) 2 Mg Tablet 2-4 Mg PO DAILY PRN TAKES 1-2 OF A (2 MG) TABLET Aspirin EC (Aspirin) 81 Mg Tablet.dr 81 Mg PO Q48H Amlodipine Besylate 2.5 Mg Tablet 2.5 Mg PO BID Lisinopril 10 Mg Tablet 10 Mg PO DAILY Instructions to patient/family Please see electonic discharge instructions given to patient. Clinical Quality Measures DVT/VTE Risk/Contraindication: Risk Factor Score Per Nursin RFS Level Per Nursing on Admit: 4+=Very High PAULETTE LEUNG DO May 09, 2017 10:16
[2017-05-09 12:50] VITALS: BP 126/70
[2017-05-09 17:10] VITALS: BP 126/70
== END 2017-05-09 17:10 | disposition home or self-care (01) | DRG 698 ==
LOC: ICU 05:22 → 4TH 05-07 14:04
PROVIDERS: ADMIT Internal Medicine; ATTEND Internal Medicine
PROC: 05H433Z Insertion of Infusion Device into Left Innominate Vein, Percutaneous Approach (ICD-10-PCS; principal; 2017-05-04)
DX: T83.518A Infection and inflammatory reaction due to other urinary catheter, initial encounter (principal); A41.51 Sepsis due to Escherichia coli [E. coli]; A41.81 Sepsis due to Enterococcus; R65.21 Severe sepsis with septic shock; R57.1 Hypovolemic shock; N39.0 Urinary tract infection, site not specified; R47.01 Aphasia; J81.1 Chronic pulmonary edema; E87.0 Hyperosmolality and hypernatremia; R60.1 Generalized edema; K64.9 Unspecified hemorrhoids; R19.7 Diarrhea, unspecified; Q05.6 Thoracic spina bifida without hydrocephalus; G83.9 Paralytic syndrome, unspecified; I10 Essential (primary) hypertension; E83.42 Hypomagnesemia; E87.8 Other disorders of electrolyte and fluid balance, not elsewhere classified; E87.6 Hypokalemia; F89 Unspecified disorder of psychological development; M19.91 Primary osteoarthritis, unspecified site; Z93.6 Other artificial openings of urinary tract status; Z89.612 Acquired absence of left leg above knee; Z89.622 Acquired absence of left hip joint
CPT/HCPCS: 36415; 71010; 80048; 80053; 80202; 81000; 82805; 82962; 83605; 83735; 83880; 84100; 84132; 85007; 85025; 85027; 85610; 85730; 87040; 87077; 87081; 87088; 87186; 87324; 87449; 93306; 94760

== ENCOUNTER 2020-11-26 03:53 | Inpatient (IN) | payer MEDICARE, MEDICAID ==
[2020-11-26] VITALS (18 sets, daily range): BP systolic 97–129; BP diastolic 56–96
[~2020-11-26] VITALS: Ht 152 cm; Wt 46.6 kg
[~2020-11-26 03:53] MED LIST: AMLO-250 PO; AMLO2.5T4 PO; AMOX-358 PO; ASPI-1238 PO; LISI10TA2 PO; LOPE2TAB32 PO
[2020-11-26 04:20] LABS: BASOPHILS % (AUTO) 0 % (0-10); EOSINOPHILS # (AUTO) 0.2 10^3/uL (0.0-0.3); EOSINOPHILS % (AUTO) 1 % (0-10); HEMATOCRIT 27 % (40-54); HEMOGLOBIN 8.3 g/dL (13.3-17.7); LYMPHOCYTES % (AUTO) 7 % (12-44); MEAN CORPUSCULAR HEMOGLOBIN 28 pg (25-34); MEAN CORPUSCULAR HGB CONC 31 g/dL (32-36); MEAN CORPUSCULAR VOLUME 92 fL (80-99); MEAN PLATELET VOLUME 8.7 fL (9.0-12.2); MONOCYTES # (AUTO) 1.1 10^3/uL (0.0-1.0); MONOCYTES % (AUTO) 7 % (0-12); NEUTROPHILS # (AUTO) 12.4 10^3/uL (1.8-7.8); NEUTROPHILS % (AUTO) 84 % (42-75); WHITE BLOOD COUNT 14.7 10^3/uL (4.3-11.0)
[2020-11-26 04:28] LABS: ALBUMIN 3.2 GM/DL (3.2-4.5)
[2020-11-26 04:29] LABS: CALCIUM 8.6 MG/DL (8.5-10.1)
[2020-11-26 04:31] LABS: TOTAL PROTEIN 6.8 GM/DL (6.4-8.2)
[2020-11-26 04:32] LABS: BILIRUBIN,TOTAL 0.3 MG/DL (0.1-1.0)
[2020-11-26 04:34] LABS: CREATININE SERUM 2.2 MG/DL (0.60-1.30)
[2020-11-26 04:36] LABS: POTASSIUM 7.3 MMOL/L (3.6-5.0)
--- NOTE | 2020-11-26 05:11 | ED General ---
General Chief Complaint: - Urinary Stated Complaint: LOW KIDNEY OUTPUT Nursing Triage Note: BROUGHT IN BY [facility] FOR DECREASED URINARY OUTPUT X2HRS Nursing Sepsis Screen: No Definite Risk Source of Information: Patient, EMS, Family Exam Limitations: No Limitations History of Present Illness Date Seen by Provider: Nov 26, 2020 Time Seen by Provider: 03:56 Initial Comments This 60-year-old gentleman presents to the emergency room from home in [place] via EMS for reasons of decreased urine output and hypotension. 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 He also has unilateral kidney. His mother who is a caregiver for him noted decreased urine output starting yesterday and declining blood pressure. She reports this happened previously in 2017 when he was admitted with sepsis. He is afebrile. In fact, his temperature is low which is a typical norm for him according to his mother. Patient denies any pain. He has also had runny stools over the past couple of days. Allergies and Home Medications Allergies Coded Allergies: sulfamethoxazole (Verified Allergy, Mild, 05/04/17) trimethoprim (Verified Allergy, Mild, 05/04/17) Home Medications Amlodipine Besylate 2.5 Mg Tablet, 2.5 MG PO BID, (Reported) Amoxicillin/Potassium Clav 1 Each Tablet, 1 EACH PO BID Prescribed by: PAULETTE LEUNG on 05/09/17 1012 Aspirin 81 Mg Tablet.dr, 81 MG PO Q48H, (Reported) Lisinopril 10 Mg Tablet, 10 MG PO DAILY, (Reported) Loperamide HCl 2 Mg Tablet, 2-4 MG PO DAILY PRN for DIARRHEA, (Reported) TAKES 1-2 OF A (2 MG) TABLET Patient Home Medication List Home Medication List Reviewed: Yes Review of Systems Review of Systems Constitutional: see HPI EENTM: no symptoms reported Respiratory: no symptoms reported Cardiovascular: no symptoms reported Gastrointestinal: no symptoms reported Genitourinary: see HPI Musculoskeletal: see HPI Skin: no symptoms reported Psychiatric/Neurological: See HPI Hematologic/Lymphatic: No Symptoms Reported Immunological/Allergic: no symptoms reported Past Oznwcky-Tospps-Tcqyjx Hx Past Med/Social Hx: Reviewed Nursing Past Med/Soc Hx Patient Social History Alcohol Use: Denies Use Smoking Status: Never a Smoker 2nd Hand Smoke Exposure: No Recent Infectious Disease Expo: No Recent Hopitalizations: No Immunizations Up To Date Date of Pneumonia Vaccine: Aug 04, 2016 Seasonal Allergies Seasonal Allergies: No Past Medical History Surgeries: Yes (MULTIPLE ) Amputation (Left AKA), Bladder Surgery (Urostomy), Bowel Surgery, Orthopedic Respiratory: No Cardiac: Yes Hypertension Neurological: Yes (Spina bifida) Developmental Disorder, Paralysis Sexually Transmitted Disease: No HIV/AIDS: No Genitourinary: Yes (UROSTOMY, unilateral kidney) Bladder Infection, UTI-Chronic Gastrointestinal: Yes Chronic Constipation Musculoskeletal: Yes (SPINABIFIDA) Arthritis Endocrine: No HEENT: No Cancer: No Psychosocial: No Integumentary: No Blood Disorders: No Adverse Reaction/Blood Tranf: No Family Medical History No Pertinent Family Hx Physical Exam-Suspected Sepsis Physical Exam Vital Signs Vital Signs - First Documented 11/26/20 03:54 Temp 34.6 Pulse 75 Resp 16 B/P (MAP) 89/62 (71) Pulse Ox 100 O2 Delivery Room Air Capillary Refill : Less Than 3 Seconds Blood Pressure Mean: 71 Height, Weight, BMI Height: 5'0.00" Weight: 102lbs. 9.0oz. 46.478324pm; 19.00 BMI Method: General Appearance: No Apparent Distress, WD/WN HEENT: PERRL/EOMI, Normal ENT Inspection Neck: Normal Inspection Respiratory: Lungs Clear, Normal Breath Sounds, No Accessory Muscle Use, No Respiratory Distress Cardiovascular: No Edema, No Murmur, Normal Peripheral Pulses, Tachycardia Gastrointestinal: Normal Bowel Sounds, Non Tender, Soft Extremity: Normal Inspection, Other (Left AKA) Neurologic/Psychiatric: Alert, Oriented x3, Normal Mood/Affect, gunner's mate m II-XII Norm as Tested, Other (Paraplegia) Skin: normal color, warm/dry Focused Exam Lactate Level 11/26/20 04:10: Lactic Acid Level 0.62 Lactic Acid Level Laboratory Tests Test 11/26/20 04:10 Lactic Acid Level 0.62 MMOL/L (0.50-2.00) Progress/Results/Core Measures Suspected Sepsis Recent Fever Within 48 Hours: No Infection Criteria Present: None New/Unexplained Altered Menta: No Sepsis Screen: No Definite Risk SIRS Temperature: Pulse: 75 Respiratory Rate: 16 Laboratory Tests 11/26/20 04:10: White Blood Count 14.7H Blood Pressure 89 /62 Mean: 71 11/26/20 04:10: Lactic Acid Level 0.62 Laboratory Tests 11/26/20 04:10: Creatinine 2.20H, INR Comment 1.0, Platelet Count 365, Total Bilirubin 0.3 Results/Orders Lab Results Laboratory Tests Test 11/26/20 04:10 11/26/20 04:40 11/26/20 05:47 Range/Units White Blood Count 14.7 H 4.3-11.0 10^3/uL Red Blood Count 2.95 L 4.30-5.52 10^6/uL Hemoglobin 8.3 L 13.3-17.7 g/dL Hematocrit 27 L 40-54 % Mean Corpuscular Volume 92 80-99 fL Mean Corpuscular Hemoglobin 28 25-34 pg Mean Corpuscular Hemoglobin Concent 31 L 32-36 g/dL Red Cell Distribution Width 15.2 H 10.0-14.5 % Platelet Count 365 130-400 10^3/uL Mean Platelet Volume 8.7 L 9.0-12.2 fL Immature Granulocyte % (Auto) 0 % Neutrophils (%) (Auto) 84 H 42-75 % Lymphocytes (%) (Auto) 7 L 12-44 % Monocytes (%) (Auto) 7 0-12 % Eosinophils (%) (Auto) 1 0-10 % Basophils (%) (Auto) 0 0-10 % Neutrophils # (Auto) 12.4 H 1.8-7.8 10^3/uL Lymphocytes # (Auto) 1.0 1.0-4.0 10^3/uL Monocytes # (Auto) 1.1 H 0.0-1.0 10^3/uL Eosinophils # (Auto) 0.2 0.0-0.3 10^3/uL Basophils # (Auto) 0.0 0.0-0.1 10^3/uL Immature Granulocyte # (Auto) 0.1 0.0-0.1 10^3/uL Neutrophils % (Manual) 86 % Lymphocytes % (Manual) 8 % Monocytes % (Manual) 5 % Eosinophils % (Manual) 1 % Toxic Granulation 2+ Hypochromasia SLIGHT Microcytosis MODERATE Prothrombin Time 14.0 12.2-14.7 SEC INR Comment 1.0 0.8-1.4 Activated Partial Thromboplast Time 34 24-35 SEC Sodium Level 129 L 135-145 MMOL/L Potassium Level 7.3 #*H 7.5 *H 3.6-5.0 MMOL/L Chloride Level 111 H 98-107 MMOL/L Carbon Dioxide Level 9 *L 21-32 MMOL/L Anion Gap 9 5-14 MMOL/L Blood Urea Nitrogen 92 H 7-18 MG/DL Creatinine 2.20 H 0.60-1.30 MG/DL Estimat Glomerular Filtration Rate 31 BUN/Creatinine Ratio 42 Glucose Level 102 70-105 MG/DL Lactic Acid Level 0.62 0.50-2.00 MMOL/L Calcium Level 8.6 8.5-10.1 MG/DL Corrected Calcium 9.2 8.5-10.1 MG/DL Total Bilirubin 0.3 0.1-1.0 MG/DL Aspartate Amino Transf (AST/SGOT) 19 5-34 U/L Alanine Aminotransferase (ALT/SGPT) 17 0-55 U/L Alkaline Phosphatase 112 40-136 U/L C-Reactive Protein High Sensitivity 4.17 H 0.00-0.50 MG/DL Total Protein 6.8 6.4-8.2 GM/DL Albumin 3.2 3.2-4.5 GM/DL Urine Color KIAN H Urine Clarity TURBID Urine pH 8.5 5-9 Urine Specific [place] 1.020 1.016-1.022 Urine Protein 3+ H NEGATIVE Urine Glucose (UA) NEGATIVE NEGATIVE Urine Ketones TRACE H NEGATIVE Urine Nitrite POSITIVE H NEGATIVE Urine Bilirubin NEGATIVE NEGATIVE Urine Urobilinogen 0.2 < = 1.0 MG/DL Urine Leukocyte Esterase 3+ H NEGATIVE Urine RBC (Auto) 3+ H NEGATIVE Urine RBC 5-10 H /HPF Urine WBC 5-10 H /HPF Urine Crystals PRESENT H /LPF Urine Amorphous Sediment LARGE RHEA URATES H /LPF Urine Bacteria MODERATE H /HPF Urine Casts NONE /LPF Urine Mucus NEGATIVE /LPF Urine Culture Indicated YES My Orders Orders - CHINMAY KEEN MD Cbc With Automated Diff (11/26/20 04:00) Comprehensive Metabolic Panel (11/26/20 04:00) Hs C Reactive Protein (11/26/20 04:00) Ua Culture If Indicated (11/26/20 04:00) Ed Iv/Invasive Line Start (11/26/20 04:00) Manual Differential (11/26/20 04:10) Blood Culture (11/26/20 04:24) Sputum Culture (11/26/20 04:24) Protime With Inr (11/26/20 04:24) Partial Thromboplastin Time (11/26/20 04:24) Chest 1 View, Ap/Pa Only (11/26/20 04:24) Vital Signs Adult Sepsis Patie Q15M (11/26/20 04:24) O2 (11/26/20 04:24) Remove Rings In Anticipation O (11/26/20 04:24) Lactic Acid Analyzer (11/26/20 04:24) Potassium (11/26/20 04:49) Ns Iv 1000 Ml (Sodium Chloride 0.9%) (11/26/20 05:15) Ceftriaxone For Iv Use (Rocephin For I (11/26/20 05:15) Vancomycin Injection (Vancomycin Injecti (11/26/20 05:15) Ekg Tracing (11/26/20 05:29) Monitor-Rhythm Ecg Trace Only (11/26/20 05:29) Urine Culture (11/26/20 05:47) Medications Given in ED Current Medications Medications Dose Ordered Sig/Wen Route Start Time Stop Time Status Last Admin Dose Admin Ceftriaxone Sodium 1000 mg/ Sterile Water 10 ml @ 200 mls/hr ONCE ONCE IV 11/26/20 05:15 11/26/20 05:18 DC 11/26/20 05:27 200 MLS/HR Vancomycin HCl 1000 mg/Sodium Chloride 250 ml @ 250 mls/hr ONCE ONCE IV 11/26/20 05:15 11/26/20 06:14 DC 11/26/20 05:27 250 MLS/HR Vital Signs/I&O 11/26/20 11/26/20 11/26/20 11/26/20 03:54 06:22 06:39 07:00 Temp 34.6 34.9 33.6 Pulse 75 73 72 96 Resp 16 18 22 B/P (MAP) 89/62 (71) 125/110 97/62 (74) Pulse Ox 100 99 99 O2 Delivery Room Air Room Air Room Air Capillary Refill : Less Than 3 Seconds Blood Pressure Mean: 71 Progress Note : Time: 06:09 Progress Note Septic work-up was pursued. Patient continues to have oligoanuria. Urinalysis is pending but urinary tract infection is presumed. Antibiotic therapy with Rocephin and vancomycin was initiated. Patient has received approximately 1 L of normal saline bolus. This did successfully resuscitate his blood pressure. I have visited with his mother about his condition. She requested that family be kept up-to-date on his condition often and that we pay special attention to the skin on skin contact of the left hip on the abdomen where there is a cushion dressing applied.Case was discussed with Dr. Crowe who recommended treating the hyperkalemia. Those orders will be placed in the ICU as patient was headed up to the ICU in a timely fashion. ECG Initial ECG Impression Date: Nov 26, 2020 Initial ECG Impression Time: 05:50 Initial ECG Rate: 75 Initial ECG Rhythm: Normal Sinus Comment Sinus rhythm with no ST elevation or depression. No abnormally peaked T waves. Right bundle branch block. Diagnostic Imaging Diagonstic Imaging: Xray Plain Films/CT/US/NM/MRI: chest Comments Chest x-ray viewed by me. Report reviewed. No acute abnormality when compared with prior. NAME: [facility] REC#: [id number] PT STATUS: REG ER : 1960 PHYSICIAN: CHINMAY KEEN MD ADMIT DATE: 11/26/20/ER Draft Date of Exam:11/26/20 CHEST 1 VIEW, AP/PA ONLY INDICATION: Oliguria Portable chest 4:35 AM Heart size and pulmonary vascularity are normal. Lungs are clear. There are no effusions or pneumothoraces. IMPRESSION: Negative chest Dictated on workstation # [id number] Dict: 11/26/20 0459 Trans: 11/26/20 0529 [id number] Interpreted by: MINDY VAUGHAN MD Departure Communication (Admissions) Time/Spoke to Admitting Phy: 05:32 Dr. Yadav Time/Spoke to Consulting Phy: 06:10 Dr. Crowe Impression Primary Impression: Severe sepsis Additional Impressions: Acute kidney injury Urinary tract infection Qualified Codes: N39.0 - Urinary tract infection, site not specified; R31.9 - Hematuria, unspecified Hyperkalemia Disposition: ADMITTED INPATIENT Condition: Improved Admissions Decision to Admit Reason: Admit from ER (Trauma) Decision to Admit/Date: Nov 26, 2020 Time/Decision to Admit Time: 04:00 Departure-Patient Inst. Referrals: HUE STEWART MD (PCP/Family) Primary Care Physician CHINMAY KEEN MD Nov 26, 2020 05:11
[2020-11-26 05:15] LABS: EOSINOPHILS % (MANUAL) 1 %; LYMPHOCYTES % (MANUAL) 8 %; MONOCYTES % (MANUAL) 5 %; NEUTROPHILS % (MANUAL) 86 %
[2020-11-26] MEDS ORDERED: cefTRIAXone FOR IV USE 1,000 MG in WATER (STERILE) FOR INJECTION 10 ML IV ONE (05:15)
[2020-11-26] MEDS ORDERED: VANCOMYCIN INJECTION 1,000 MG in NS (IVPB) 250 ML IV ONE (05:15)
[2020-11-26 05:16] LABS: HYPOCHROMASIA SLIGHT; MICROCYTOSIS MODERATE; PLATELET COUNT 365 10^3/uL (130-400); TOXIC GRANULATION/VACUOLAZATIO 2+
[2020-11-26] MEDS: NS IV 1000 ML 1,000 ML IV SCH ×2 (05:27→08:15)
--- NOTE | 2020-11-26 05:30 | Diagnostic Imaging Report ---
INDICATION: Oliguria Portable chest 4:35 AM Heart size and pulmonary vascularity are normal. Lungs are clear. There are no effusions or pneumothoraces. IMPRESSION: Negative chest Dictated by: Dictated on workstation # [id number]
--- NOTE | 2020-11-26 06:00 | NUR ---
FLOOR RN UNABLE TO TAKE REPORT.
--- NOTE | 2020-11-26 06:10 | NUR ---
PT GIVEN PORTABLE PHONE TO CONTACT MOTHER. ASSISTED IN DIALING.
--- NOTE | 2020-11-26 06:18 | NUR ---
FLOOR RN UNABLE TO TAKE REPORT.
[2020-11-26] MEDS ORDERED: inSUlin (REGULAR) HUMAN 1 UNIT/0.01 ML (CHARGE PER UNIT) IV ONE (06:30)
[2020-11-26] MEDS ORDERED: DEXTROSE 50% 50 ML (IMS) SYR IV ONE (06:30)
[2020-11-26] MEDS ORDERED: SODIUM BICARB 8.4% 50 MEQ/50 ML (ABBOTT) SYR IV ONE (06:30)
[2020-11-26] MEDS ORDERED: CALCIUM GLUC. 10% 4.65 MEQ/10 ML VIAL IV ONE ×2 (06:30→08:45)
[2020-11-26] MEDS ORDERED: SOD POLYSTERENE 15 GM/60 ML (KAYEXALATE) UNIT DOSE PO ONE (06:30)
[2020-11-26 06:39] LABS: BILIRUBIN,URINE NEGATIVE (NEGATIVE); CLARITY,URINE TURBID; COLOR,URINE AMBER; GLUCOSE, URINE (UA) NEGATIVE (NEGATIVE); KETONES,URINE TRACE (NEGATIVE); LEUKOCYTE ESTERASE ,URINE 3+ (NEGATIVE); NITRITE,URINE POSITIVE (NEGATIVE); PH,URINE 8.5 (5-9); PROTEIN,URINE 3+ (NEGATIVE)
[2020-11-26] MEDS ORDERED: SOD POLYSTERENE 15 GM/60 ML (KAYEXALATE) UNIT DOSE ONE (06:43)
[2020-11-26] MEDS ORDERED: DEXTROSE 50% 50 ML (IMS) SYR ONE (06:44)
[2020-11-26] MEDS ORDERED: SODIUM BICARB 8.4% 50 MEQ/50 ML VIAL ONE (06:44)
--- NOTE | 2020-11-26 06:44 | Pulmonary Consultation ---
History of Present Illness History of Present Illness Date Seen by Provider: Nov 26, 2020 Time Seen by Provider: 06:39 Date of Admission History of Present Illness 60yo with hx of spina bifida, paraplegia, urostomy and unilateral kidney. Pt has been recently in hospital secondary to sepsis. Pt was found to have acute sepsis, acute renal failure with hyperkalemia, and metabolic acidosis. Hyperkalemia has not yet been treated. Pt admitted to ICU and I am consulted for ICU management. Allergies and Home Medications Allergies Coded Allergies: sulfamethoxazole (Verified Allergy, Mild, 05/04/17) trimethoprim (Verified Allergy, Mild, 05/04/17) Home Medications Amlodipine Besylate 2.5 Mg Tablet, 2.5 MG PO BID, (Reported) Amoxicillin/Potassium Clav 1 Each Tablet, 1 EACH PO BID Prescribed by: PAULETTE LEUNG on 05/09/17 1012 Aspirin 81 Mg Tablet.dr, 81 MG PO Q48H, (Reported) Lisinopril 10 Mg Tablet, 10 MG PO DAILY, (Reported) Loperamide HCl 2 Mg Tablet, 2-4 MG PO DAILY PRN for DIARRHEA, (Reported) TAKES 1-2 OF A (2 MG) TABLET Past Iihzoos-Gutslo-Ljwgpa Hx Past Med/Social Hx: Reviewed Nursing Past Med/Soc Hx Patient Social History Alcohol Use: Denies Use Smoking Status: Never a Smoker 2nd Hand Smoke Exposure: No Recent Infectious Disease Expo: No Recent Hopitalizations: No Immunizations Up To Date Date of Pneumonia Vaccine: Aug 04, 2016 Date of Influenza Vaccine: Jul 29, 2020 Seasonal Allergies Seasonal Allergies: No Past Medical History Surgeries: Yes (MULTIPLE ) Amputation (Left AKA), Bladder Surgery (Urostomy), Bowel Surgery, Orthopedic Respiratory: No Cardiac: Yes Hypertension Neurological: Yes (Spina bifida) Developmental Disorder, Paralysis Sexually Transmitted Disease: No HIV/AIDS: No Genitourinary: Yes (UROSTOMY, unilateral kidney) Bladder Infection, UTI-Chronic Gastrointestinal: Yes Chronic Constipation Musculoskeletal: Yes (SPINABIFIDA) Arthritis Endocrine: No HEENT: No Cancer: No Psychosocial: No Integumentary: No Blood Disorders: No Adverse Reaction/Blood Tranf: No Family Medical History No Pertinent Family Hx Review of Systems Time Seen by Provider: 06:49 Sepsis Event Evaluation Height, Weight, BMI Height: 5'0.00" Weight: 102lbs. 9.0oz. 46.318487hr; 20.16 BMI Method: Exam Exam Vital Signs Date Time Temp Pulse Resp B/P (MAP) Pulse Ox O2 Delivery O2 Flow Rate FiO2 11/26/20 06:22 34.9 73 18 125/110 99 Room Air 11/26/20 03:54 34.6 75 16 89/62 (71) 100 Room Air I & O 11/26/20 07:00 Intake Total 400 ml Balance 400 ml Height & Weight Height: 5'0.00" Weight: 102lbs. 9.0oz. 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 Hx of Spina Bifida and paraplegia and chronic urostomy Pt has a unilateral kidney anemia -Monitor ARIEL HART DO Nov 26, 2020 06:44
[2020-11-26] MEDS ORDERED: NS IV 1000 ML 1,000 ML IV SCH ×2 (06:45)
[2020-11-26] MEDS ORDERED: inSUlin (REGULAR) HUMAN 1 UNIT/0.01 ML (CHARGE PER UNIT) ONE (06:45)
[2020-11-26] MEDS ORDERED: ONDANSETRON 4 MG/2 ML (SDV) Z0FRAN IVP PRN (06:45)
[2020-11-26 06:58] LABS: AMORPHOUS SEDIMENT,UR LARGE AMOR URATES /LPF; BACTERIA,URINE MODERATE /HPF
[2020-11-26] MEDS: MEROPENEM 500 MG in WATER (STERILE) FOR INJECTION 10 ML IV SCH ×2 (07:12→21:03)
[2020-11-26 08:32] LABS: ABG BASE EXCESS -13.4 MMOL/L (-2.5-2.5); ABG OXYGEN SATURATION 97 % (94-100); ABG PCO2 25 MMHG (35-45); ABG PO2 63 MMHG (79-93); ABG TCO2 14.1 MMOL/L (21.0-31.0)
[2020-11-26 08:37] LABS: ALLENS TEST YES-POS; INSPIRED O2 RA; PATIENT TEMP 30.2; VENTILATOR NO
--- NOTE | 2020-11-26 08:37 | Diagnostic Imaging Report ---
INDICATION: PICC line placement Frontal chest obtained at 0825 a.m. compared to 0435 a.m. the same day. There is a new right-sided PICC line with tip overlying the mid SVC. There is poor inspiration the lungs are grossly clear. Heart is normal in size. Advanced chronic changes of the right shoulder are again noted. There are spinal rods in place. IMPRESSION: New right-sided PICC line tip overlies mid SVC. Otherwise no significant change compared to earlier today. Dictated by: Dictated on workstation # [id number]
[2020-11-26] MEDS ORDERED: CALCIUM GLUCONATE 1 GM/NS 50 ML IV NR ×2 (08:45)
--- NOTE | 2020-11-26 08:45 | NUR ---
THIS RN CALLED PT'S MOTHER, ELSA, AND PROVIDED UPDATE. SHE WAS INFORMED OF PT'S DIAGNOSIS, CURRENT PLAN OF CARE, AND PT'S CRITICAL STATUS. SHE WAS INFORMED THAT SHE WOULD NOT BE UPDATED AGAIN UNTIL [employer]ION [employer]CTURES CARTOONIST.
[2020-11-26] MEDS: SODIUM BICARBONATE 8.4% VIAL 100 MEQ in 1/2 NS IV SOLUTION 1,000 ML IV SCH ×3 (09:01→21:37)
--- NOTE | 2020-11-26 09:18 | History & Physical-Hospitalist ---
ALEKSANDER DASILVA,MED STUDENT 11/26/20 0918: History of Present Illness HPI/Chief Complaint Patient is 60yo male with a PMH of spina bifida, paraplegia, unilateral kidney and urostomy who presented to [facility] ED via EMS due to decreased urine output and hypotension. His mother is a caregiver for him and his parents called EMS when they noticed decreasing urine output and declining pressures. He had a similar event in 2017 when he was hospitalized for sepsis. He denies any pain, denies fevers, chills, lightheadedness, CP, SOB. In the ED, he was found to have sepsis with acute kidney injury and hyperkalemia, and received IV fluids and was started on Rocephin and vancomycin. Source: patient Exam Limitations: no limitations Date Seen 11/26/20 Attending Physician Saan Yadav MD PCP Stephen Zamora MD Referring Physician Date of Admission Nov 26, 2020 at 05:50 Home Medications & Allergies Home Medications Reviewed patient Home Medication Reconciliation performed by pharmacy medication reconciliations dermatology technician and/or nursing. Patients Allergies have been reviewed. Allergies Allergies Coded Allergies sulfamethoxazole (Verified Allergy, Mild, 05/04/17) trimethoprim (Verified Allergy, Mild, 05/04/17) Past Jezrabd-Yhjvps-Moelpi Hx Past Med/Social Hx: Reviewed Nursing Past Med/Soc Hx Patient Social History Alcohol Use: Denies Use Recreational Drug Use: No Smoking Status: Never a Smoker 2nd Hand Smoke Exposure: No Recent Foreign Travel: No Contact w/other who traveled: No Recent Hopitalizations: No Recent Infectious Disease Expo: No Immunizations Up To Date Date of Pneumonia Vaccine: Aug 04, 2016 Date of Influenza Vaccine: Jul 29, 2020 Seasonal Allergies Seasonal Allergies: No Past Medical History Surgeries: Amputation (Left AKA), Bladder Surgery (Urostomy), Bowel Surgery, Orthopedic Cardiac: Hypertension Neurological: Developmental Disorder, Paralysis Sexually Transmitted Disease: No HIV/AIDS: No Genitourinary: Bladder Infection, UTI-Chronic Gastrointestinal: Chronic Constipation Musculoskeletal: Arthritis History of Blood Disorders: No Adverse Reaction to Blood Espitia: No Family History No Pertinent Family Hx Review of Systems Constitutional: No chills, No diaphoresis, No dizziness, No fever EENTM: No hearing loss, No vision loss, No nose congestion, No throat pain Respiratory: No cough, No short of breath, No wheezing Cardiovascular: No chest pain, No palpitations, No syncope Gastrointestinal: No abdominal pain; diarrhea; No dysphagia, No nausea, No vomiting Genitourinary: decreased output; No dysuria, No pain Musculoskeletal: see HPI Skin: no symptoms reported Psychiatric/Neurological: See HPI Physical Exam Physical Exam Vital Signs Vital Signs - First Documented 11/26/20 03:54 Temp 34.6 Pulse 75 Resp 16 B/P (MAP) 89/62 (71) Pulse Ox 100 O2 Delivery Room Air Capillary Refill : Less Than 3 Seconds Height, Weight, BMI Height: 5'0.00" Weight: 102lbs. 9.0oz. 46.147213cx; 20.16 BMI Method: General Appearance: No Apparent Distress, WD/WN HEENT: PERRL/EOMI, Pharynx Normal Neck: Non Tender, Supple Respiratory: Lungs Clear, No Accessory Muscle Use, No Respiratory Distress Cardiovascular: Regular Rate, Rhythm, No Murmur Gastrointestinal: Normal Bowel Sounds, Non Tender, Soft Extremity: Non Tender, Other (Left AKA) Neurologic/Psychiatric: Alert, Oriented x3 Skin: Normal Color, Warm/Dry Results Results/Procedures Labs Laboratory Tests 11/26/20 04:10 11/26/20 04:40 Patient resulted labs reviewed. Assessment/Plan Assessment and Plan Severe sepsis Chronic urostomy On Zyvox and Merrem Cultures pending Urology and pulmonology consulted Acute kidney injury with hyperkalemia and metabolic acidosis On bicarbonate gtt Received calcium gluconate Will repeat labs Anemia Hgb 8.3 Continue to monitor Hx of spina bifida and paraplegia PRANAV HERNANDEZ MD 11/26/20 1504: History of Present Illness Time Seen by a Provider: 15:00 Assessment/Plan Admission Diagnosis severe sepsis Admission Status: Inpatient Order (span 2 midnights) Reason for Inpatient Admission: see below Assessment and Plan Pt presented due to low urine output and was found to have severe sepsis from a UTI with acute renal failure and hyperkalemia. He has marginal blood pressures a nd was admitted to the ICU. He reports to me that he is feeling well now and much better than when he arrivaed. He is to be continued on IV abx and await cultures. urology consulted, appreciate recs. CT abdomen noncontrast revealed a 2.7cm stone in his right kidney with a 1.5cm stone in the lower pole. I discussed this with Dr Rivera who recommends percutaneous nephrostomy which we are unable to do here. I called [facility] who declined due to being at bed capacity. I am awaiting a return call from [facility] for inpatient to inpatient transfer. I spoke to patient and updated his mom as well regarding this plan and potential delays in transfer due to hospitals being at high capacity. Supervisory-Addendum Brief Verification & Attestation Participated in pt care: history, MDM, physical Personally performed: exam, history, MDM, supervision of care Care discussed with: Medical Student Procedures: n/a Results interpretation: Verified all documentation Verification and Attestation of Medical Student E/M Service A medical student performed and documented this service in my presence. I reviewed and verified all information documented by the medical student and made modifications to such information, when appropriate. I personally performed the physical exam and medical decision making. Pranav Hernandez, Nov 26, 2020,14:57 ALEKSANDER DASILVA,MED STUDENT Nov 26, 2020 09:18 PRANAV HERNANDEZ MD Nov 26, 2020 15:04
[2020-11-26] MEDS: LINEZOLID IVPB 300 ML IV SCH ×2 (09:43→21:04)
[2020-11-26 10:34] LABS: POTASSIUM 5.6 MMOL/L (3.6-5.0)
[2020-11-26 10:36] LABS: CALCIUM 7.5 MG/DL (8.5-10.1)
[2020-11-26 10:40] LABS: CREATININE SERUM 1.8 MG/DL (0.60-1.30); PHOSPHORUS 4.1 MG/DL (2.3-4.7)
[2020-11-26 10:43] LABS: MAGNESIUM 2.1 MG/DL (1.6-2.4)
--- NOTE | 2020-11-26 11:00 | Diagnostic Imaging Report ---
INDICATION: PROCEDURE: Ultrasound abdomen complete. TECHNIQUE: Multiple real-time grayscale images were obtained of the abdomen in various projections. INDICATION: Urostomy malfunction. COMPARISON: None available. FINDINGS: Liver measures approximately 11 cm in length. The left hepatic lobe is obscured by overlying bowel gas. Where visualized, the liver demonstrates heterogeneous echogenicity with probable nodularity of the surface. Portal vein is patent with normal directional flow. However, there are low velocities within the portal vein which can be seen with portal hypertension. There are multiple polyps versus adherent gallstones. The largest measures 1.1 x 0.7 cm. No pericholecystic fluid or gallbladder wall thickening. The common bile duct is obscured by overlying bowel gas. Pancreas is completely obscured by overlying bowel gas. Tryjqhqp-yt-bfxrex right-sided hydronephrosis. There is a calcified shadowing structure in lower pole measuring approximately 2.5 and could represent a calcified cyst versus stone. The right kidney measures 16 cm in length. Left kidney is surgically absent. Aorta and IVC are obscured by overlying bowel gas. Spleen is normal in size measuring 8 cm. No focal splenic lesion. IMPRESSION: 1. Houqbgfq-zl-bzyntf right hydronephrosis. 2. Echogenic and likely calcified structure in the lower pole of the right kidney may represent calcified cyst or stone. Correlation with CT abdomen without contrast would be beneficial. 3. Liver has imaging features highly suspicious for cirrhosis. Dictated by: Dictated on workstation # [id number]
--- NOTE | 2020-11-26 12:08 | CONSULTATION REPORT ---
DATE OF SERVICE: 11/26/2020 ATTENDING PHYSICIAN: Dr. Hernandez. SUMMARY: After reviewing the patient's record, unable to interview him. He is not a good historian at all. This is a patient with a history of, paraplegia, previous ileal loop diversion and a single kidney, admitted to the ICU with sepsis and septic shock as well as renal failure and hyperkalemia with metabolic acidosis. I reviewed his labs. His creatinine is 2.2. His GFR is low. His white count is elevated. He was started on appropriate antibiotic. At the time of admission, apparently the loop was not putting much urine and there was concern about obstruction and now the loop is draining what looks like a concentrated urine. IMPRESSION: Urosepsis with septic shock, probable pre azotemia, doubt postrenal azotemia. RECOMMENDATIONS: 1. Abdominal ultrasound to check on the loop and the status of the kidney, rule out any obstruction to either one or both. 2. Address the sepsis and dehydration and hyperkalemia and then manage according to the above. Job ID: [id number] DocumentID: [id number] Dictated Date: 11/26/2020 09:39:11 Manager [place] Date: 11/26/2020 10:14:48 Dictated By: PINKY CLINE MD
[2020-11-26] MEDS ORDERED: ALPR0.254 PO (14:41)
[2020-11-26] MEDS ORDERED: PROP10TA8 PO (14:41)
--- NOTE | 2020-11-26 14:46 | NUR ---
SPOKE WITH PTS MOTHER (ELSA) AND WENT THRU THE EXT MED HISTORY TO COMPLETE THE MED REC ELSA WAS ABLE TO TELL ME ALL THE PTS MEDICATIONS WELL WHEN/HOW HE TAKES OTC MEDS: NONE
--- NOTE | 2020-11-26 15:37 | Diagnostic Imaging Report ---
PROCEDURE: CT abdomen and pelvis without contrast. TECHNIQUE: Multiple contiguous axial images were obtained through the abdomen and pelvis without the use of intravenous contrast. Auto Exposure Controls were utilized during the CT exam to meet ALARA standards for radiation dose reduction. INDICATION: Urostomy malfunction. COMPARISON: Abdominal ultrasound also performed today. FINDINGS: Tiny right pleural effusion or thickening. The liver, gallbladder, pancreas, spleen and adrenal glands are grossly unremarkable but poorly evaluated with the lack of IV contrast and streak artifact from hardware throughout the visualized thoracic and lumbar spine. There appears to be severe right hydronephrosis. There is a large calcified stone medial to the lower pole of the right kidney measuring up to 2.7 cm. This may be within the urinary pelvis or proximal ureter. There is a similar-appearing stone measuring up to 1.5 cm anterior to the lower pole of the right kidney which appears to be within a bowel loop or the ileal conduit. The ileal conduit urostomy is in the right lower quadrant. No findings suspicious for bowel obstruction. No free intraperitoneal air or fluid is identified. Postoperative changes in the pelvis and throughout the lower thoracic and lumbar spine. No acute osseous findings are seen. IMPRESSION: Again seen is the severe right hydronephrosis. There are two large calcified bodies near the lower pole of the right kidney whose location is indeterminate. The largest may be located within the inferior renal pelvis or proximal ureter resulting in the obstruction. The second, more inferior calcified body, may be within the ileal conduit and could possibly also be resulting in the obstruction. Structures are poorly delineated on this noncontrast exam. Dictated by: Dictated on workstation # [id number]
--- NOTE | 2020-11-26 19:57 | Consultation - Surgery ---
History of Present Illness History of Present Illness Patient Consulted On(alphonso/time) 11/26/20 15:52 Date Seen by Provider: Nov 26, 2020 Time Seen by Provider: 15:52 History of Present Illness Consult requested by Dr. Crowe for hemorrhoids Patient is a 60-year-old male who was admitted for urinary tract infection, sepsis right hydronephrosis secondary to nephrolithiasis. Patient was hyperkalemic and was given Kayexalate. Patient is paraplegic. He is now having multiple bowel movements. Nursing noted some inflamed hemorrhoids or prolapse. Patient is not having any bleeding per rectum. He is paraplegic still having no pain. Patient has had decreased urine output and was hypotensive. Since being admitted patient states that he is feeling better. He has no other complaints at this time. Patient somewhat a poor historian. Patient had CT scan abdomen pelvis as noted: Again seen is the severe right hydronephrosis. There are two large calcified bodies near the lower pole of the right kidney whose location is indeterminate. The largest may be located within the inferior renal pelvis or proximal ureter resulting in the obstruction. The second, more inferior calcified body, may be within the ileal conduit and could possibly also be resulting in the obstruction. Structures are poorly delineated on this noncontrast exam Allergies and Home Medications Allergies Coded Allergies: sulfamethoxazole (Verified Allergy, Mild, 05/04/17) trimethoprim (Verified Allergy, Mild, 05/04/17) Home Medications ALPRAZolam 0.25 Mg Tablet, 0.25 MG PO DAILY PRN for ANXIETY, (Reported) Amlodipine Besylate 2.5 Mg Tablet, 2.5 MG PO BID, (Reported) Lisinopril 10 Mg Tablet, 10 MG PO DAILY, (Reported) Propranolol HCl 10 Mg Tablet, 10 MG PO DAILY, (Reported) Patient Home Medication List Home Medication List Reviewed: Yes Past Aeomxin-Vnmwpc-Ixwemu Hx Patient Social History Smoking Status: Never a Smoker 2nd Hand Smoke Exposure: No Recent Hopitalizations: No Immunizations Up To Date Date of Pneumonia Vaccine: Aug 04, 2016 Date of Influenza Vaccine: Jul 29, 2020 Seasonal Allergies Seasonal Allergies: No Surgeries History of Surgeries: Yes (MULTIPLE ) Surgeries: Amputation (Left AKA), Bladder Surgery (Urostomy), Bowel Surgery, Orthopedic Respiratory History of Respiratory Disorde: No Cardiovascular History of Cardiac Disorders: Yes Cardiac Disorders: Hypertension Neurological History of Neurological Disord: Yes (Spina bifida) Neurological Disorders: Developmental Disorder, Paralysis Reproductive System Sexually Transmitted Disease: No HIV/AIDS: No Genitourinary History of Genitourinary Disor: Yes (UROSTOMY, unilateral kidney) Genitourinary Disorders: Bladder Infection, UTI-Chronic Gastrointestinal History of Gastrointestinal Di: Yes Gastrointestinal Disorders: Chronic Constipation Musculoskeletal History of Musculoskeletal Dis: Yes (SPINABIFIDA) Musculoskeletal Disorders: Arthritis Endocrine History of Endocrine Disorders: No HEENT History of HEENT Disorders: No Cancer History of Cancer: No Psychosocial History of Psychiatric Problem: No Integumentary History of Skin or Integumenta: No Blood Transfusions History of Blood Disorders: No Adverse Reaction to a Blood Tr: No Reviewed Nursing Assessment Reviewed/Agree w Nursing PMH: Yes Family Medical History Significant Family History: No Pertinent Family Hx Review of Systems-General Constitutional: No chills, No diaphoresis EENTM: No ear pain, No blurred vision Respiratory: No cough, No dyspnea on exertion Cardiovascular: No chest pain, No edema Gastrointestinal: diarrhea; No dysphagia Genitourinary: decreased output, other (Urostomy) Musculoskeletal: No back pain, No joint pain Skin: No change in color, No change in hair/nails Psychiatric/Neurological: Denies Anxiety, Denies Depressed, Denies Emotional Problems All Other Systems Reviewed Negative Unless Noted: Yes (Negative excepted noted.) Physical Exam-General Problems Physical Exam Vital Signs Vital Signs - First Documented 11/26/20 03:54 Temp 34.6 Pulse 75 Resp 16 B/P (MAP) 89/62 (71) Pulse Ox 100 O2 Delivery Room Air Capillary Refill : Less Than 3 Seconds General Appearance: WD/WN, no apparent distress HEENT: PERRL/EOMI, normal ENT inspection Neck: non-tender, supple Respiratory: chest non-tender, no respiratory distress, no accessory muscle use Cardiovascular: no edema, no JVD, tachycardia Gastrointestinal: non tender, soft, other (Urostomy right lower quadrant) Rectal: hemorrhoids; No tenderness; other (Inflamed hemorrhoidal tissue) Back: no CVA tenderness, no vertebral tenderness Extremities: non-tender, other (Left hip disarticulation) Neurologic/Psychiatric: alert, oriented x 3 Skin: normal color, warm/dry Lymphatic: no adenopathy Data Review Labs Laboratory Tests 11/26/20 04:10: White Blood Count 14.7H, Red Blood Count 2.95L, Hemoglobin 8.3L, Hematocrit 27L, Mean Corpuscular Volume 92, Mean Corpuscular Hemoglobin 28, Mean Corpuscular Hemoglobin Concent 31L, Red Cell Distribution Width 15.2H, Platelet Count 365, Mean Platelet Volume 8.7L, Immature Granulocyte % (Auto) 0, Neutrophils (%) (Auto) 84H, Lymphocytes (%) (Auto) 7L, Monocytes (%) (Auto) 7, Eosinophils (%) (Auto) 1, Basophils (%) (Auto) 0, Neutrophils # (Auto) 12.4H, Lymphocytes # (Auto) 1.0, Monocytes # (Auto) 1.1H, Eosinophils # (Auto) 0.2, Basophils # (Auto) 0.0, Immature Granulocyte # (Auto) 0.1, Neutrophils % (Manual) 86, Lymphocytes % (Manual) 8, Monocytes % (Manual) 5, Eosinophils % (Manual) 1, Toxic Granulation 2+, Hypochromasia SLIGHT, Microcytosis MODERATE, Prothrombin Time 14.0, INR Comment 1.0, Activated Partial Thromboplast Time 34, Sodium Level 129L, Potassium Level 7.3#*H, Chloride Level 111H, Carbon Dioxide Level 9*L, Anion Gap 9, Blood Urea Nitrogen 92H, Creatinine 2.20H, Estimat Glomerular Filtration Rate 31, BUN/Creatinine Ratio 42, Glucose Level 102, Lactic Acid Level 0.62, Calcium Level 8.6, Corrected Calcium 9.2, Total Bilirubin 0.3, Aspartate Amino Transf (AST/SGOT) 19, Alanine Aminotransferase (ALT/SGPT) 17, Alkaline Phosphatase 112, C-Reactive Protein High Sensitivity 4.17H, Total Protein 6.8, Albumin 3.2 11/26/20 04:40: Potassium Level 7.5*H 11/26/20 05:47: Urine Color AMBERH, Urine Clarity TURBID, Urine pH 8.5, Urine Specific [place] 1.020, Urine Protein 3+H, Urine Glucose (UA) NEGATIVE, Urine Ketones TRACEH, Urine Nitrite POSITIVEH, Urine Bilirubin NEGATIVE, Urine Urobilinogen 0.2, Urine Leukocyte Esterase 3+H, Urine RBC (Auto) 3+H, Urine RBC 5-10H, Urine WBC 5-10H, Urine Crystals PRESENTH, Urine Amorphous Sediment LARGE RHEA URATESH, Urine Bacteria MODERATEH, Urine Casts NONE, Urine Mucus NEGATIVE, Urine Culture Indicated YES 11/26/20 08:25: Blood Gas Puncture Site LR, Blood Gas Patient Temperature 30.2, Arterial Blood pH 7.30*L, Arterial Blood Partial Pressure CO2 25L, Arterial Blood Partial Pressure O2 63L, Arterial Blood HCO3 13*L, Arterial Blood Total CO2 14.1L, Arterial Blood Oxygen Saturation 97, Arterial Blood Base Excess -13.4L, Jayden Test YES-POS, Blood Gas Ventilator Setting NO, Blood Gas Inspired Oxygen RA 11/26/20 10:13: Sodium Level 134L, Potassium Level 5.6H, Chloride Level 116H, Carbon Dioxide Level 10L, Anion Gap 8, Blood Urea Nitrogen 78H, Creatinine 1.80H, Estimat Glomerular Filtration Rate 39, BUN/Creatinine Ratio 43, Glucose Level 135H, Calcium Level 7.5L, Phosphorus Level 4.1, Magnesium Level 2.1 11/26/20 17:10: Coronavirus 2019 (FABI) Negative Assessment/Plan Assessment/Plan Assessment/Plan Prolapsed hemorrhoids Hyperkalemia on Kayexalate multiple bowel movements Urosepsis Nephrolithiasis Hydronephrosis of right kidney due to obstruction Patient with multiple bowel movements keep area clean and dry no emergent surgical intervention needed at this time. Likely due to having multiple frequent bowel movements at this time. Patient needing percutaneous nephrostomy tube which Dr. Hernandez is trying to arrange since is done available at our facility. Patient to continue on current antibiotics. Medical management. Please call if needed will sign off. MANUEL MARIO DO Nov 26, 2020 19:57
[2020-11-26] MEDS ORDERED: ALBUMIN 25% 25 GM/100 ML 100 ML IV ONE (21:00)
[2020-11-26 22:08] LABS: HEMOGLOBIN 7.3 g/dL (13.3-17.7); MEAN PLATELET VOLUME 8.4 fL (9.0-12.2); WHITE BLOOD COUNT 8.2 10^3/uL (4.3-11.0)
[2020-11-26 22:22] LABS: CREATININE SERUM 1.38 MG/DL (0.60-1.30)
[2020-11-26] MEDS ORDERED: morphine INJ 10 MG/ML 1ML (SYR OR VIAL) IVP STA (23:47)
[2020-11-27] VITALS: BP 102/76
[2020-11-27] MEDS: SODIUM BICARBONATE 8.4% VIAL 100 MEQ in 1/2 NS IV SOLUTION 1,000 ML IV SCH (00:14)
[2020-11-27 01:00] VITALS: BP 100/57
[2020-11-27 02:00] VITALS: BP 82/59
--- NOTE | 2020-11-27 02:16 | NUR ---
TIMELINE NOTE: 11/26 1929: PROBATE PARALEGAL AT [facility] IN [place], [place] CALLED THIS RN; UNABLE TO ACCEPT PT SECONDARY TO ACUITY OF PATIENT'S NEEDS, TRACK LEADER RECOMMENDED [facility]. 1939: [facility] NOTIFIED OF [facility] NOT ACCEPTING PT. [facility] REPORTED THAT [facility] WILL NOT ACCEPT TRANSFER CALLS FROM THEM, THAT IT HAS TO BE A DOCTOR TO DOCTOR CALL. 1944: E-ICU NOTIFIED OF PT BEING UNABLE TO GO TO [facility] AND THAT [facility] REQUIRES A DOCTOR TO DOCTOR. E-ICU REPORTS "THEY ARE UNABLE TO FACILITATE THE TRANSFER AND TO CALL THE HOSPITALIST." 1954: PROBATE PARALEGAL NOTIFIED; DR. RIOS TO BE NOTIFIED. 1999: PT UPDATED ON PLAN OF CARE 2024: PTS HEART RATE 128 AT THIS TIME. THIS RN CALLED E-ICU TO REPORT TACHYCARDIA. 2044: DR. RIOS CALLED THIS RN; CALL MADE TO [facility] TO FIND PLACEMENT AND SHE WILL MANAGE THE TRANSFER. 2119: NEW ORDERS FOR LABS AT 2200, ALBUMIN, AND HEPARIN SC. SEE ORDER HISTORY FOR DETAILS. 2149: THIS RN UPDATED PT'S MOM (ELSA) ON PLAN OF CARE AND PT'S CONDITION 2229: PT ACCEPTED AT [facility]; TO DR. CRAIG. PT WILL GO TO ICU-12 2239: [facility] NOTIFIED OF TRANSFER NEED. NEXT AVAILABLE TRANSFER WILL BE BETWEEN 1-2AM. 230: PT REPORTING BACK PAIN 08/07. THIS RN ATTEMPTED TO HELP PT INTO A PRONE POSITION HE REPORTS "ONLY BEING ABLE TO SLEEP ON HIS BELLY AT HOME." PT IMMEDIATELY INCONTINENT OF DIARRHEA. PT CLEANED AND POSITIONED BACK TO HIS BACK. E-ICU NOTIFIED. NEW ORDER RECEIVED FOR 2 MG IV MORPHINE X1 FOR PAIN. 2345: PT HAS HAD MULTIPLE BOWEL MOVEMENTS TONIGHT; HEMORRHOIDS/RECTAL PROLAPSE NOTED TO BE BLEEDING. MOISTURE BARRIER CREAM APPLIED EACH TIME. 11/27 0040: REPORT GIVEN TO GERALD CORTEZ AT [facility]. 0145: PT'S SBP IN THE 80'S AT THIS TIME. E-ICU NOTIFIED; ORDER RECEIVED TO JUST MONITOR AT THIS TIME. 0200: [facility] HERE; REPORT AND TRANSFER FORMS GIVEN. 0215: UPDATE AND ETOA GIVEN TO GERALD CORTEZ AT [facility]. 0220: PT'S MOTHER UPDATED ON PT'S DEPARTURE AND CONDITION.
[2020-11-27] MEDS ORDERED: cefTRIAXone 1,000 MG/SWFI 10 ML IV PUSH IV SCH ×2 (06:00)
--- NOTE | 2020-11-29 13:50 | Physician Query Clarification ---
PQ-Link Infection to Dev/Proc Admission/Discharge Admission Date: Nov 26, 2020 at 05:50 Discharge Date: Nov 27, 2020 at 12:17 , The medical record reflects the following clinical scenario: History/Risk Factors: urostomy, spina bifida with paraplegia, UTI, sepsis w/septic shock, acute renal failure Clinical Findings: decreased urine output the loop was not putting much urine and there was concern about obstruction and now the loop is draining what looks like a concentrated urine. urine culture >30,000 Proteus Treatment: IV Zyvox, IV Merrem Question: Can you specify if the UTI is due to/associated with urostomy? Please document a response in Progress Note or Discharge Summary. 1. Yes - UTI is due to/associated with urostomy. 2. No - UTI is not due to/associated with urostomy. 3. Other, with explanation of the clinical findings. 4. Clinically undetermined, no explanation for the clinical findings. PHYSICIAN RESPONSE Specify if infection: 1 Please remember a lack of response to the above will prompt a phone page by CDI/Coding staff. In responding to this query, please exercise your independent professional judgment. The purpose of this communication is to more accurately reflect the complexity of your patients condition. The fact that a question is asked does not imply that any particular answer is desired or expected. Thank you for your timely response to this clarification. Requestors name: [email or web address] THIS PHYSICIAN QUERY FORM IS A PERMANENT PART OF THE MEDICAL RECORD ERIKA WEST Nov 29, 2020 13:50 PRANAV RIOS MD Dec 03, 2020 14:14
--- NOTE | 2020-11-29 13:54 | Physician Query Clarification ---
PQ-Further Specificity Admission/Discharge Admission Date: Nov 26, 2020 at 05:50 Discharge Date: Nov 27, 2020 at 12:17 Dr. Hernandez, The medical record reflects the following clinical scenario: History/Risk Factors: urostomy, UTI, sepsis w/septic shock, acute renal failure Clinical Findings: decreased urine output the loop was not putting much urine and there was concern about obstruction and now the loop is draining what looks like a concentrated urine. urine culture - proteus > 30,000 Treatment: IV Zyvox, IV Merrem Question: Can you further specify the urostomy per the clinical indicators above? Please document a response in the Progress Notes or Discharge Summary. 1. cystostomy 2. nephrostomy 3. ileostomy 4. Other, with explanation of the clinical findings. 5. Clinically undetermined, no explanation for the clinical findings. PHYSICIAN RESPONSE Can you specify per above: 2 Please remember a lack of response to the above will prompt a phone page by CDI/Coding staff. In responding to this query, please exercise your independent professional judgment. The purpose of this communication is to more accurately reflect the complexity of your patients condition. The fact that a question is asked does not imply that any particular answer is desired or expected. Thank you for your timely response to this clarification. Requestors name: [email or web address] THIS PHYSICIAN QUERY FORM IS A PERMANENT PART OF THE MEDICAL RECORD DANA WEST Nov 29, 2020 13:54 PRANAV HERNANDEZ MD Dec 06, 2020 18:46
== END 2020-11-27 12:17 | disposition short-term general hospital (02) | DRG 698 ==
LOC: EDUNIT# 03:53 → ER 03:56 → ICU 05:50
PROVIDERS: ADMIT Internal Medicine; ATTEND Internal Medicine
DX: N99.521 Infection of incontinent external stoma of urinary tract (principal); A41.9 Sepsis, unspecified organism; R65.21 Severe sepsis with septic shock; N13.6 Pyonephrosis; N17.9 Acute kidney failure, unspecified; G82.20 Paraplegia, unspecified; E87.2 Acidosis; N20.0 Calculus of kidney; Q05.9 Spina bifida, unspecified; Z20.822 Contact with and (suspected) exposure to COVID-19; E86.0 Dehydration; K64.8 Other hemorrhoids; I10 Essential (primary) hypertension; E87.5 Hyperkalemia; D64.9 Anemia, unspecified; Z89.612 Acquired absence of left leg above knee; Z90.5 Acquired absence of kidney; Z79.2 Long term (current) use of antibiotics; Z79.82 Long term (current) use of aspirin; Z88.2 Allergy status to sulfonamides
CPT/HCPCS: 36415; 36569; 71045; 74176; 76700; 76937; 80048; 80053; 81000; 82805; 83605; 83735; 84100; 84132; 85007; 85027; 85610; 85730; 86141; 87040; 87077; 87081; 87088; 87186; 87635; 93005; 93041; 96361; 96365; 96375